=== PATIENT | male | born 1955 | race Caucasian/White ===

== ENCOUNTER 2021-05-06 13:07 | Outpatient (REF) | payer BC, SELFPAY ==
--- NOTE | ~2021-05-06 | XR_ITS ---
EXAMINATION: XR FOOT, LEFT CLINICAL INFORMATION: Pain COMPARISON: None TECHNIQUE: AP, lateral, and oblique views of the left foot. FINDINGS: Limited positioning in part due to medial deviation of metatarsal bones about the metatarsal tarsal articulations. There is no definitive changes of a neuropathic joint and there is no subluxation. Mild spurring. No deformity or any periosteal new bone formation. No erosions. No fracture. XR/XR foot LT min 3V IMPRESSION: Chronic malalignment of the midtarsal joint as above.
== END 2021-05-06 13:08 | disposition home or self-care (01) ==
LOC: HO.HMGCLDS 13:07
PROVIDERS: PCP Family Medicine; Visit Provider Physician Assistant Medical
DX: M79.672 Pain in left foot (principal)
CPT/HCPCS: 73630

== ENCOUNTER → 2022-02-12 11:07 | Outpatient (BNVA) | payer MEDICARE, SELFPAY | PROVIDERS: Visit Provider Psychiatry & Neurology Psychiatry | DX: F32.4 Major depressive disorder, single episode, in partial remission (principal); Z79.899 Other long term (current) drug therapy | CPT/HCPCS: 90833; 99212 ==

== ENCOUNTER 2022-04-12 14:00 | Emergency (ER) | payer MEDICARE, SELFPAY ==
--- NOTE | ~2022-04-12 | CT_ITS ---
EXAMINATION: CT ABDOMEN AND PELVIS WITH CONTRAST CLINICAL INFORMATION: Diffuse abdominal pain COMPARISON: CT abdomen pelvis 01/12/2019 TECHNIQUE: Multidetector volumetric images were obtained from the superior aspect of the liver through the pubic symphysis following administration 100 mL of Omnipaque 350 intravenous contrast. Sagittal and coronal reformatted images were obtained on the technologist's workstation. Oral contrast: No This CT examination was performed using dose optimization techniques as appropriate, variously including the following: *Automated exposure control *Adjustment of mA and/or kV according to patient size (this includes techniques or standardized protocols for targeted exams where dose is matched to indication/reason for exam; i.e. extremities or head) *Use of iterative reconstruction technique DLP: 812 mGy-cm FINDINGS: LUNG BASES: The visualized lung bases are unremarkable. LIVER, GALLBLADDER, AND BILIARY TREE: The liver is enlarged measuring 17.9 cm in greatest cephalocaudad dimension. Normal in size, shape, and attenuation. No focal hepatic lesion or biliary ductal dilatation is present. The gallbladder is unremarkable with no evidence of radiopaque gallstones, gallbladder wall thickening, or obvious pericholecystic inflammatory changes. PANCREAS: Unremarkable. SPLEEN: Unremarkable. ADRENAL GLANDS: Unremarkable. KIDNEYS AND URETERS: The kidneys are normal in size, shape, and attenuation. Bilateral benign Bosniak class I cysts are present. No solid renal masses are seen. 3 small punctate calcifications seen in the left kidney (3:30 and 29 as well as 6:36, 37 and 39). No hydronephrosis, hydroureter, or right-sided or ureteral calculi seen. No perinephric stranding. BLADDER: Unremarkable. GASTROINTESTINAL TRACT: A lap band is in place. The small and large bowel are unremarkable. The appendix is unremarkable. ABDOMINAL WALL: No significant hernia is appreciated. LYMPH NODES: Small peripancreatic lymph nodes seen the largest 1.1 cm no retroperitoneal lymphadenopathy. VASCULAR: Mild calcific plaque in the infrarenal aorta without aneurysm. PELVIC VISCERA: There is mild BPH. OSSEOUS STRUCTURES: Degenerative changes are present throughout the spine. No bony destructive lesions CT/CT abdomen pelvis w IV con IMPRESSION: 1. A cause for the patient's diffuse abdominal pain has not been found. 2. Incidental note made of mild hepatomegaly, benign Bosniak class I renal cysts which need no further imaging or follow-up, small punctate nonobstructing left renal calculi, mild BPH and degenerative changes in the spine. Fleischner guidelines were followed.
[2022-04-12 16:13] VITALS: BP 148/73; PULSE 94; RESP 18; TEMP 36.2; O2SAT 98; BMI 32.5
--- NOTE | 2022-04-12 16:14 | ED.GENADULT ---
HPI - General Adult General Chief complaint: Abdominal Pain <KETTY Cunningham - Last Filed: 04/12/22 16:18> Stated complaint: Abd pain/Diarrhea <KETTY Cunningham - Last Filed: 04/12/22 16:18> Time Seen by Provider: 04/12/22 23:09 <KETTY Cunningham - Last Filed: 04/12/22 16:18> Source: patient <Lluvia Duncan CNP - Last Filed: 04/13/22 01:01> Mode of arrival: ambulatory <Lluvia Duncan CNP - Last Filed: 04/13/22 01:01> Limitations: no limitations <Lluvia Duncan CNP - Last Filed: 04/13/22 01:01> History of Present Illness HPI narrative: Patient is a 67-year-old male presents to the emergency department for evaluation of abdominal pain with nausea and diarrhea. Symptom onset was yesterday morning. He states that he is having diffuse lower abdominal cramping and sharp pains. Has associated nausea without episodes of vomiting. T-max yesterday 100.8. He reports multiple episodes of diarrhea yesterday. Today he has had to liquid stools containing blood. Denies any anticoagulants usage. Denies any past history of diverticulitis, colitis, bowel obstruction. Prior colonoscopies have been normal, due for routine follow-up next month. <Lluvia Duncan CNP - Last Filed: 04/13/22 01:01> Related Data Home medications: Home Medications Medication Instructions Recorded Confirmed finasteride 5 mg tablet 5 mg PO DAILY 05/06/21 02/12/22 gabapentin 300 mg capsule 300 mg PO TID 05/06/21 02/12/22 levothyroxine 75 mcg tablet 75 mcg PO DAILY 05/06/21 losartan 100 mg tablet 100 mg PO DAILY 05/06/21 02/12/22 simvastatin 40 mg tablet 40 mg PO BEDTIME 05/06/21 02/12/22 Previous Rx's Medication Instructions Recorded armodafinil 150 mg tablet 150 mg PO QAM #30 tabs 02/12/22 bupropion HCl 300 mg 24 hr tablet, 300 mg PO QAM 30 days #30 tabs 02/12/22 extended release trazodone 100 mg tablet 300 mg PO BEDTIME PRN sleep #270 03/01/22 tabs pramipexole 0.25 mg tablet 0.25 mg PO BEDTIME 30 days #30 tabs 04/12/22 (Mirapex) <KETTY Cunningham - Last Filed: 04/12/22 16:18> Allergies/adverse reactions: Allergies Allergy/AdvReac Type Severity Reaction Status Date / Time Opium Allergy Intermediate HALLUCINATI Uncoded 04/12/22 16:18 ON opioid Allergy Unknown Hallucinati Uncoded 04/12/22 16:19 ons <KETTY Cunningham - Last Filed: 04/12/22 16:18> Review of Systems Review of Systems: Constitutional : No Weight loss, No Fever, No Chills ENT/Mouth :? No sore throat, No Rhinorrhea Eyes: No Swelling, No Redness Cardiovascular : No Chest Pain, No SOB, No Edema Respiratory : No Cough, No Sputum, No Wheezing Gastrointestinal : Positive Nausea, no Vomiting, positive Diarrhea, positive abdominal pain, No Hematochezia, No Melena Genitourinary : No Dysuria, No Urinary Frequency, No Hematuria, No Urgency? Musculoskeletal : No joint pain, No Myalgias, No Joint Swelling Skin : No Skin Lesions, No rash Neuro : No Weakness, No Numbness, No Dizziness, No Headache Psych : No Anxiety/Panic, No Depression Heme/Lymph: No Bruising, No Lymphadenopathy Endocrine : No Polyuria, No Polydipsia <Lluvia Duncan CNP - Last Filed: 04/13/22 01:01> Yes all other systems are reviewed and are negative <Lluvia Duncan CNP - Last Filed: 04/13/22 01:01> [facility] Past Medical History Attestation statement: The following information was validated with the patient. <Lluvia Duncan CNP - Last Filed: 04/13/22 01:01> Source: old records reviewed <Lluvia Duncan CNP - Last Filed: 04/13/22 01:01> Medical History: Medical History Essential (primary) hypertension Hyperlipemia Major depress, part remis CHASE (obstructive sleep apnea) <KETTY Cunningham - Last Filed: 04/12/22 16:18> Social History Social History: Social History Alcohol intake: current Alcohol intake frequency: 0-2 drinks per day Advance Directives: No Advance Directives Information Provided: Yes <KETTY Cunningham - Last Filed: 04/12/22 16:18> Physical Exam ED Vital Signs: Vital Signs - 24 hr 04/12/22 16:13 04/12/22 21:18 04/12/22 23:34 Temperature 97.1 F 98.8 F 98.6 F Pulse Rate 94 73 80 Respiratory Rate 18 16 18 Blood Pressure 148/73 H 151/78 H 148/76 H Pulse Oximetry 98 98 Oxygen Delivery Method Room Air Room Air Room Air 04/13/22 00:44 Temperature 97.6 F Pulse Rate 77 Respiratory Rate 18 Blood Pressure 145/71 H Pulse Oximetry 97 Oxygen Delivery Method Room Air BMI result Body Mass Index 32.5 <KETTY Cunningham - Last Filed: 04/12/22 16:18> Vital Signs - 24 hr 04/12/22 16:13 04/12/22 21:18 04/12/22 23:34 Temperature 97.1 F 98.8 F 98.6 F Pulse Rate 94 73 80 Respiratory Rate 18 16 18 Blood Pressure 148/73 H 151/78 H 148/76 H Pulse Oximetry 98 98 Oxygen Delivery Method Room Air Room Air Room Air 04/13/22 00:44 Temperature 97.6 F Pulse Rate 77 Respiratory Rate 18 Blood Pressure 145/71 H Pulse Oximetry 97 Oxygen Delivery Method Room Air BMI result Body Mass Index 32.5 <Lluvia Duncan CNP - Last Filed: 04/13/22 01:01> Appearance: Alert.?Oriented to person, place and time. No acute distress.?Normal affect. Eyes: Pupils equal, round and reactive to light.? ENT: Pharynx normal.?? Neck: Normal inspection.? Neck supple.?? CVS: Heart sounds normal. Normal heart rate and rhythm.? Pulses normal.?? Respiratory: No respiratory distress.? Lung sounds clear to auscultation bilaterally?? Abdomen: Soft with diffuse lower abdominal tenderness. Normoactive bowel sounds. Rectal exam performed with russet repairer, lead nuclear medicine technologist. Maroon-colored blood upon examination of stool ? Skin: Skin warm and dry.? Normal skin color.? ?? Extremities: No lower extremity edema.? Neuro: Moves all extremities spontaneously. Sensation intact bilaterally. No focal neuro deficits. Ambulates with normal steady gait. <Lluvia Duncan CNP - Last Filed: 04/13/22 01:01> Course Course Course Narrative: Patient is a 67-year-old male with a past medical history of Hypertension, hyperlipidemia, CHASE, who presents emergency department for evaluation of abdominal pain and bloody diarrhea. At the time of examination he is overall well-appearing. Vital signs overall stable, no tachycardia, fever, tachypnea or hypoxia. Is mildly hypertensive. Diffuse lower abdominal tenderness upon examination, positive hematochezia. At the time of evaluation 23:15 patient has had labs obtained from [facility] chief been reviewed, leukocytosis 16.6 with left shift, CMP overall unremarkable. Awaiting CT. Urinalysis unremarkable. Occult stool is positive. <Lluvia Duncan CNP - Last Filed: 04/13/22 01:01> Reevaluation(s) Reevaluation #1: 67 year old male presents w/ diffuse crampy abdominal pain with intermittent sharp pains, nausea, diarrhea ( 2 small ones today, completely liquid containing blood) X2 days. Not on blood thinners. No abd trauma. Yesterday had a fever of 100.8 F. Last colonoscopy 5 years ago which was normal scheduled to get one next month. No personal or family hx of colorectal cancer. Denies, chills, anorexia, vomiting, chest pain, shortness of breath, weakness. Reports antibiotic use 1 month ago. PE: diffusely tender abd w/ normal bowel sounds. Plan: labs CT scan. <KETTY Cunningham - Last Filed: 04/12/22 16:18> Time: 16:16 <KETTY Cunningham - Last Filed: 04/12/22 16:18> Reevaluation #2: Patient noted to be ambulatory with steady gait. CT reveals an unremarkable small and large bowel, no acute abdominal pathology. Reviewed this case with ED attending Dr. Beaulieu, agrees with following plan of care; discharge home, supportive measure, rest, hydration, slow progression of bland diet, reviewed worrisome signs and symptoms to return back to the ED for, all questions were answered. Tolerating crackers and gingerale in ED without vomiting. <Lluviapaul Duncan CNP - Last Filed: 04/13/22 01:01> Time: 00:43 <Lluvia Vallesse Duncan CNP - Last Filed: 04/13/22 01:01> Medications Administered Generic Name Dose Route Start Last Admin Trade Name Freq PRN Reason Stop Dose Admin Levofloxacin 750 mg in 150 mls @ 100 mls/hr 04/12/22 23:37 04/13/22 00:35 Levaquin IV 04/13/22 01:06 100 mls/hr ONCE ONE Administration Discontinued Medications Generic Name Dose Route Start Last Admin Trade Name Freq PRN Reason Stop Dose Admin Acetaminophen 650 mg 04/12/22 18:25 04/12/22 18:38 Acetaminophen 325 Mg Tablet PO 04/12/22 18:26 650 mg ONCE ONE Administration Sodium Chloride 1,000 mls @ 999 mls/hr 04/12/22 23:45 04/13/22 00:35 Ns IV 04/13/22 00:45 999 mls/hr .Q1H1M CRISTA Administration Iohexol 100 ml 04/13/22 00:11 04/13/22 00:11 Iohexol 350 Mg/Ml 100 Ml Infus..Btl IV 04/13/22 00:12 100 ml ONCE ONE Administration <KETTY Cunningham - Last Filed: 04/12/22 16:18> Medications Administered Generic Name Dose Route Start Last Admin Trade Name Freq PRN Reason Stop Dose Admin Levofloxacin 750 mg in 150 mls @ 100 mls/hr 04/12/22 23:37 04/13/22 00:35 Levaquin IV 04/13/22 01:06 100 mls/hr ONCE ONE Administration Discontinued Medications Generic Name Dose Route Start Last Admin Trade Name Freq PRN Reason Stop Dose Admin Acetaminophen 650 mg 04/12/22 18:25 04/12/22 18:38 Acetaminophen 325 Mg Tablet PO 04/12/22 18:26 650 mg ONCE ONE Administration Sodium Chloride 1,000 mls @ 999 mls/hr 04/12/22 23:45 04/13/22 00:35 Ns IV 04/13/22 00:45 999 mls/hr .Q1H1M CRISTA Administration Iohexol 100 ml 04/13/22 00:11 04/13/22 00:11 Iohexol 350 Mg/Ml 100 Ml Infus..Btl IV 04/13/22 00:12 100 ml ONCE ONE Administration <Lluvia Duncan CNP - Last Filed: 04/13/22 01:01> Medical Decision Making Lab Data Result diagrams: : 04/12/22 21:24 04/12/22 21:24 <KETTY Cunningham - Last Filed: 04/12/22 16:18> Labs: Lab Results 04/12/22 04/12/22 04/12/22 Range/Units 21:24 21:24 21:24 WBC 16.6 H (4.8-10.8) X10*3/uL RBC 5.05 (4.60-5.80) X10*6/uL Hgb 14.8 (14.0-18.0) g/dl Hct 44.5 (42.0-52.0) % MCV 88.1 (80.0-98.0) fL MCH 29.3 (27.0-33.0) pg MCHC 33.3 (31.0-36.0) g/dl RDW 13.3 (11.0-16.0) % Plt Count 284 (160-400) X10*3/uL MPV 8.6 L (9.4-12.4) fL Immature Gran % (Auto) 0.3 (0.0-0.4) % Neut % (Auto) 78.2 H (45-73) % Lymph % (Auto) 10.7 L (20-40) % [place] % (Auto) 9.6 (2-11) % Eos % (Auto) 1.0 (0-4) % Baso % (Auto) 0.2 (0-2) % Lymph # (Auto) 1.8 (1.2-4.9) X10*3/uL [place] # (Auto) 1.6 H (0.1-1.2) X10*3/uL Eos # (Auto) 0.2 (0.0-0.4) X10*3/uL Baso # (Auto) 0.0 (0.0-0.2) X10*3/uL Abs Immat Gran (auto) 0.05 H (0.00-0.03) X10*3/uL Absolute Neuts (auto) 13.0 H (2.0-8.3) x10*3/uL Absolute Nucleated RBC 0.000 (0.0-0.012) X10*3/uL Nucleated RBC % (auto) 0.0 (0.0-0.2) /100WBC Smear Tech's Comments VERIFIED Sodium 136 (135-145) mmol/L Potassium 4.6 (3.3-5.1) mmol/L Chloride 101 (96-108) mmol/L Carbon Dioxide 25 (22-29) mmol/L Anion Gap 15 (12-20) BUN 17 H (9-16) mg/dL Creatinine 0.94 (0.5-1.4) mg/dL Estim Creat Clear Calc 98.5 Estimated GFR > 60 Random Glucose 122 H (60-115) mg/dL Lactic Acid (0.5-2.0) mmol/L Calcium 9.4 (8.4-10.2) mg/dL Magnesium 2.2 (1.6-2.6) mg/dL Total Bilirubin 0.8 (0.0-1.0) mg/dL AST 19 (5-37) U/L ALT 21 (0-40) U/L Alkaline Phosphatase 75 (39-117) U/L Total Protein 7.5 (6.5-8.0) g/dL Albumin 4.4 (3.5-5.0) g/dL Lipase 23 (8-78) U/L Urine Color Urine Appearance Urine pH (5.0-9.0) Ur Specific Stark (1.005-1.025) Urine Protein (Neg-Trace) mg/dL Urine Glucose (UA) (Negative) mg/dL Urine Ketones (Negative) mg/dL Urine Blood (Negative) Urine Nitrite (Negative) Ur Leukocyte Esterase (Negative) Stool Occult Blood (NEGATIVE) COVID-19 (NIELS) Negative (Negative) COVID-19 Clin Com See Note 04/12/22 04/12/22 04/13/22 Range/Units 21:34 23:29 00:29 WBC (4.8-10.8) X10*3/uL RBC (4.60-5.80) X10*6/uL Hgb (14.0-18.0) g/dl Hct (42.0-52.0) % MCV (80.0-98.0) fL MCH (27.0-33.0) pg MCHC (31.0-36.0) g/dl RDW (11.0-16.0) % Plt Count (160-400) X10*3/uL MPV (9.4-12.4) fL Immature Gran % (Auto) (0.0-0.4) % Neut % (Auto) (45-73) % Lymph % (Auto) (20-40) % [place] % (Auto) (2-11) % Eos % (Auto) (0-4) % Baso % (Auto) (0-2) % Lymph # (Auto) (1.2-4.9) X10*3/uL [place] # (Auto) (0.1-1.2) X10*3/uL Eos # (Auto) (0.0-0.4) X10*3/uL Baso # (Auto) (0.0-0.2) X10*3/uL Abs Immat Gran (auto) (0.00-0.03) X10*3/uL Absolute Neuts (auto) (2.0-8.3) x10*3/uL Absolute Nucleated RBC (0.0-0.012) X10*3/uL Nucleated RBC % (auto) (0.0-0.2) /100WBC Smear Tech's Comments Sodium (135-145) mmol/L Potassium (3.3-5.1) mmol/L Chloride (96-108) mmol/L Carbon Dioxide (22-29) mmol/L Anion Gap (12-20) BUN (9-16) mg/dL Creatinine (0.5-1.4) mg/dL Estim Creat Clear Calc Estimated GFR Random Glucose (60-115) mg/dL Lactic Acid 0.4 L (0.5-2.0) mmol/L Calcium (8.4-10.2) mg/dL Magnesium (1.6-2.6) mg/dL Total Bilirubin (0.0-1.0) mg/dL AST (5-37) U/L ALT (0-40) U/L Alkaline Phosphatase (39-117) U/L Total Protein (6.5-8.0) g/dL Albumin (3.5-5.0) g/dL Lipase (8-78) U/L Urine Color Dark Yellow Urine Appearance Clear Urine pH 5.5 (5.0-9.0) Ur Specific Stark 1.025 (1.005-1.025) Urine Protein Trace (Neg-Trace) mg/dL Urine Glucose (UA) Negative (Negative) mg/dL Urine Ketones Negative (Negative) mg/dL Urine Blood Negative (Negative) Urine Nitrite Negative (Negative) Ur Leukocyte Esterase Negative (Negative) Stool Occult Blood POSITIVE (NEGATIVE) COVID-19 (NIELS) (Negative) COVID-19 Clin Com <KETTY Cunningham - Last Filed: 04/12/22 16:18> Lab Results 04/12/22 04/12/22 04/12/22 Range/Units 21:24 21:24 21:24 WBC 16.6 H (4.8-10.8) X10*3/uL RBC 5.05 (4.60-5.80) X10*6/uL Hgb 14.8 (14.0-18.0) g/dl Hct 44.5 (42.0-52.0) % MCV 88.1 (80.0-98.0) fL MCH 29.3 (27.0-33.0) pg MCHC 33.3 (31.0-36.0) g/dl RDW 13.3 (11.0-16.0) % Plt Count 284 (160-400) X10*3/uL MPV 8.6 L (9.4-12.4) fL Immature Gran % (Auto) 0.3 (0.0-0.4) % Neut % (Auto) 78.2 H (45-73) % Lymph % (Auto) 10.7 L (20-40) % [place] % (Auto) 9.6 (2-11) % Eos % (Auto) 1.0 (0-4) % Baso % (Auto) 0.2 (0-2) % Lymph # (Auto) 1.8 (1.2-4.9) X10*3/uL [place] # (Auto) 1.6 H (0.1-1.2) X10*3/uL Eos # (Auto) 0.2 (0.0-0.4) X10*3/uL Baso # (Auto) 0.0 (0.0-0.2) X10*3/uL Abs Immat Gran (auto) 0.05 H (0.00-0.03) X10*3/uL Absolute Neuts (auto) 13.0 H (2.0-8.3) x10*3/uL Absolute Nucleated RBC 0.000 (0.0-0.012) X10*3/uL Nucleated RBC % (auto) 0.0 (0.0-0.2) /100WBC Smear Tech's Comments VERIFIED Sodium 136 (135-145) mmol/L Potassium 4.6 (3.3-5.1) mmol/L Chloride 101 (96-108) mmol/L Carbon Dioxide 25 (22-29) mmol/L Anion Gap 15 (12-20) BUN 17 H (9-16) mg/dL Creatinine 0.94 (0.5-1.4) mg/dL Estim Creat Clear Calc 98.5 Estimated GFR > 60 Random Glucose 122 H (60-115) mg/dL Lactic Acid (0.5-2.0) mmol/L Calcium 9.4 (8.4-10.2) mg/dL Magnesium 2.2 (1.6-2.6) mg/dL Total Bilirubin 0.8 (0.0-1.0) mg/dL AST 19 (5-37) U/L ALT 21 (0-40) U/L Alkaline Phosphatase 75 (39-117) U/L Total Protein 7.5 (6.5-8.0) g/dL Albumin 4.4 (3.5-5.0) g/dL Lipase 23 (8-78) U/L Urine Color Urine Appearance Urine pH (5.0-9.0) Ur Specific Stark (1.005-1.025) Urine Protein (Neg-Trace) mg/dL Urine Glucose (UA) (Negative) mg/dL Urine Ketones (Negative) mg/dL Urine Blood (Negative) Urine Nitrite (Negative) Ur Leukocyte Esterase (Negative) Stool Occult Blood (NEGATIVE) COVID-19 (NIELS) Negative (Negative) COVID-19 Clin Com See Note 04/12/22 04/12/22 04/13/22 Range/Units 21:34 23:29 00:29 WBC (4.8-10.8) X10*3/uL RBC (4.60-5.80) X10*6/uL Hgb (14.0-18.0) g/dl Hct (42.0-52.0) % MCV (80.0-98.0) fL MCH (27.0-33.0) pg MCHC (31.0-36.0) g/dl RDW (11.0-16.0) % Plt Count (160-400) X10*3/uL MPV (9.4-12.4) fL Immature Gran % (Auto) (0.0-0.4) % Neut % (Auto) (45-73) % Lymph % (Auto) (20-40) % [place] % (Auto) (2-11) % Eos % (Auto) (0-4) % Baso % (Auto) (0-2) % Lymph # (Auto) (1.2-4.9) X10*3/uL [place] # (Auto) (0.1-1.2) X10*3/uL Eos # (Auto) (0.0-0.4) X10*3/uL Baso # (Auto) (0.0-0.2) X10*3/uL Abs Immat Gran (auto) (0.00-0.03) X10*3/uL Absolute Neuts (auto) (2.0-8.3) x10*3/uL Absolute Nucleated RBC (0.0-0.012) X10*3/uL Nucleated RBC % (auto) (0.0-0.2) /100WBC Smear Tech's Comments Sodium (135-145) mmol/L Potassium (3.3-5.1) mmol/L Chloride (96-108) mmol/L Carbon Dioxide (22-29) mmol/L Anion Gap (12-20) BUN (9-16) mg/dL Creatinine (0.5-1.4) mg/dL Estim Creat Clear Calc Estimated GFR Random Glucose (60-115) mg/dL Lactic Acid 0.4 L (0.5-2.0) mmol/L Calcium (8.4-10.2) mg/dL Magnesium (1.6-2.6) mg/dL Total Bilirubin (0.0-1.0) mg/dL AST (5-37) U/L ALT (0-40) U/L Alkaline Phosphatase (39-117) U/L Total Protein (6.5-8.0) g/dL Albumin (3.5-5.0) g/dL Lipase (8-78) U/L Urine Color Dark Yellow Urine Appearance Clear Urine pH 5.5 (5.0-9.0) Ur Specific Stark 1.025 (1.005-1.025) Urine Protein Trace (Neg-Trace) mg/dL Urine Glucose (UA) Negative (Negative) mg/dL Urine Ketones Negative (Negative) mg/dL Urine Blood Negative (Negative) Urine Nitrite Negative (Negative) Ur Leukocyte Esterase Negative (Negative) Stool Occult Blood POSITIVE (NEGATIVE) COVID-19 (NIELS) (Negative) COVID-19 Clin Com <Lluvia Duncan CNP - Last Filed: 04/13/22 01:01> Imaging Data CT scan - abdomen: Radiologist's impression: CT/CT abdomen pelvis w IV con IMPRESSION: 1.? A cause for the patient's diffuse abdominal pain has not been found. 2.? Incidental note made of mild hepatomegaly, benign Bosniak class I renal cysts which need no further imaging or follow-up, small punctate nonobstructing left renal calculi, mild BPH and degenerative changes in the spine. <Lluvia Duncan CNP - Last Filed: 04/13/22 01:01> Critical Care Time Critical Care Time Critical Care Time: No <KETTY Cunningham - Last Filed: 04/12/22 16:18> Discharge Plan Discharge Clinical Impression: Gastroenteritis <KETTY Cunningham Last Filed: 04/12/22 16:18> Patient Disposition: Home, Self-Care <KETTY Cunningham Last Filed: 04/12/22 16:18> Instructions: Acute Diarrhea (ED), Enteritis (ED) <KETTY Cunningham Last Filed: 04/12/22 16:18> Additional Instructions: Please be sure to rest over the next few days, drink plenty of fluid to stay well hydrated. Slow progression of bland diet as discussed; Introduce a bland diet including crackers, bananas, rice, soup, toast, and boiled vegetables. This may progress to plain baked or boiled chicken or turkey. Avoid dairy products or foods high in fat or grease. Return to the emergency department with new or worsening symptoms or concerns Follow-up with primary care provider within the next 3 days. <KETTY Cunningham - Last Filed: 04/12/22 16:18> Prescriptions: No Action trazodone 100 mg tablet 300 mg PO BEDTIME PRN (Reason: sleep) Qty: 270 0RF pramipexole [Mirapex] 0.25 mg tablet 0.25 mg PO BEDTIME 30 Days Qty: 30 1RF gabapentin 300 mg capsule 300 mg PO TID levothyroxine 75 mcg tablet 75 mcg PO DAILY simvastatin 40 mg tablet 40 mg PO BEDTIME losartan 100 mg tablet 100 mg PO DAILY finasteride 5 mg tablet 5 mg PO DAILY armodafinil 150 mg tablet 150 mg PO QAM Qty: 30 2RF bupropion HCl 300 mg tablet extended release 24 hr 300 mg PO QAM 30 Days Qty: 30 2RF <KETTY Cunningham - Last Filed: 04/12/22 16:18> Referrals: Richard Ambriz MD [Primary Care Provider] - <KETTY Cunningham - Last Filed: 04/12/22 16:18>
[2022-04-12] MEDS: Acetaminophen 325 MG TABLET 650 MG PO (18:38)
[2022-04-12 21:18] VITALS: BP 151/78; PULSE 73; RESP 16; TEMP 37.1; O2SAT 98
[2022-04-12 21:31] LABS: Basophils Percent Auto 0.2 % (0-2); Eosinophils Absolute Auto 0.2 X10*3/uL (0.0-0.4); Hematocrit 44.5 % (42.0-52.0); Hemoglobin 14.8 g/dl (14.0-18.0); Imm Gran Abs Auto 0.05 X10*3/uL (0.00-0.03); Imm Gran Pct Auto 0.3 % (0.0-0.4); Lymphocytes Absolute Auto 1.8 X10*3/uL (1.2-4.9); Lymphocytes Percent Auto 10.7 % (20-40); MANUAL DIFF FLAG SCAN; Mean Corpuscular HGB Conc 33.3 g/dl (31.0-36.0); Mean Corpuscular Hemoglobin 29.3 pg (27.0-33.0); Mean Corpuscular Volume 88.1 fL (80.0-98.0); Mean Platelet Volume 8.6 fL (9.4-12.4); Monocytes Absolute Auto 1.6 X10*3/uL (0.1-1.2); Monocytes Percent Auto 9.6 % (2-11); Neutrophils Percent Auto 78.2 % (45-73); Platelet Count 284 X10*3/uL (160-400); Red Blood Count 5.05 X10*6/uL (4.60-5.80); Red Cell Distribution Width 13.3 % (11.0-16.0); SCAN SMEAR FLAG 1; White Blood Count 16.6 X10*3/uL (4.8-10.8)
[2022-04-12 21:49] LABS: Appearance Urine Clear; Color Urine Dark Yellow; Glucose Urine UA Negative (Negative); Leukocyte Esterase Urine Negative (Negative); Nitrite Urine Negative (Negative); PH 5.5 (5.0-9.0); Specific Gravity - Urine 1.025 (1.005-1.025); Urine Blood Negative (Negative); Urine Ketones Negative (Negative); Urine Protein Trace mg/dL (Neg-Trace)
[2022-04-12 21:58] LABS: Alanine Aminotransferase 21 U/L (0-40); Albumin Level 4.4 g/dL (3.5-5.0); Alkaline Phosphatase 75 U/L (39-117); Anion Gap 15 (12-20); Aspartate Amino Transferase 19 U/L (5-37); Bilirubin Total 0.8 mg/dL (0.0-1.0); Blood Urea Nitrogen 17 mg/dL (9-16); Calcium 9.4 mg/dL (8.4-10.2); Carbon Dioxide 25 mmol/L (22-29); Chloride 101 mmol/L (96-108); Creatinine Clr Calc Pharmacy 98.5; Estimated Glomerular Filt Rate > 60; Glucose Random 122 mg/dL (60-115); Lipase 23 U/L (8-78); Magnesium 2.2 mg/dL (1.6-2.6); Potassium 4.6 mmol/L (3.3-5.1); Sodium 136 mmol/L (135-145); Total Protein 7.5 g/dL (6.5-8.0)
[2022-04-12 22:14] LABS: SLIDE REVIEW VERIFIED
[2022-04-12 22:17] LABS: COVID-19 Test Negative (Negative)
[2022-04-12 23:32] LABS: OBS1 POSITIVE (NEGATIVE)
[2022-04-12 23:33] LABS: OBS Int Ctl Valid YES
[2022-04-12 23:34] VITALS: BP 148/76; PULSE 80; RESP 18; TEMP 37
[2022-04-13] MEDS: iohexoL 350 MG/ML 100 ML INFUS..BTL IV (00:11)
[2022-04-13] MEDS: 0.9 % Sodium Chloride 1,000 ML 999 ML IV (00:35)
[2022-04-13] MEDS: levoFLOXacin/D5W 750 MG/150 ML PIGGYBACK 100 MG IV (00:35)
--- NOTE | 2022-04-13 00:43 | PC.NURSE ---
Pt. resting in bed, awaiting results from CT. Blood cultures and lactic acid drawn and IV ABX running w/fluids per JUL. Pt. reports some decrease in pain since the tylenol.
[2022-04-13 00:44] VITALS: BP 145/71; PULSE 77; RESP 18; TEMP 36.4; O2SAT 97
[2022-04-13 00:52] LABS: Lactic Acid 0.4 mmol/L (0.5-2.0)
== END 2022-04-13 01:40 | disposition home or self-care (01) ==
PROVIDERS: Nurse Practitioner Family; Physician Assistant; Emergency Provider Internal Medicine; PCP Family Medicine
DX: K52.9 Noninfective gastroenteritis and colitis, unspecified (principal); R10.9 Unspecified abdominal pain; R50.9 Fever, unspecified; Z20.822 Contact with and (suspected) exposure to COVID-19; Z79.02 Long term (current) use of antithrombotics/antiplatelets; Z79.899 Other long term (current) drug therapy
CPT/HCPCS: 36415; 74177; 80053; 81003; 82272; 83605; 83690; 83735; 85025; 87040; 87635; 96361; 96374; 99284; J1956; Q9967

== ENCOUNTER → 2022-04-23 11:07 | Outpatient (BNVA) | payer MEDICARE, SELFPAY | PROVIDERS: PCP Family Medicine; Visit Provider Psychiatry & Neurology Psychiatry | DX: F32.4 Major depressive disorder, single episode, in partial remission (principal); F98.8 Other specified behavioral and emotional disorders with onset usually occurring in childhood and adolescence; I10 Essential (primary) hypertension; E78.5 Hyperlipidemia, unspecified; G47.33 Obstructive sleep apnea (adult) (pediatric) | CPT/HCPCS: 99212 ==

== ENCOUNTER → 2022-06-23 11:37 | Outpatient (BNVA) | payer MEDICARE, SELFPAY | PROVIDERS: PCP Family Medicine; Visit Provider Psychiatry & Neurology Psychiatry | DX: F32.4 Major depressive disorder, single episode, in partial remission (principal); F98.8 Other specified behavioral and emotional disorders with onset usually occurring in childhood and adolescence; F52.9 Unspecified sexual dysfunction not due to a substance or known physiological condition; I10 Essential (primary) hypertension; G47.33 Obstructive sleep apnea (adult) (pediatric); Z63.0 Problems in relationship with spouse or partner | CPT/HCPCS: 90833; 99212 ==

== ENCOUNTER → 2022-10-25 14:34 | Outpatient (BNVA) | payer MEDICARE, SELFPAY | PROVIDERS: PCP Family Medicine; Visit Provider Psychiatry & Neurology Psychiatry | DX: F98.8 Other specified behavioral and emotional disorders with onset usually occurring in childhood and adolescence (principal); F32.4 Major depressive disorder, single episode, in partial remission; G47.33 Obstructive sleep apnea (adult) (pediatric) | CPT/HCPCS: 90833; 99212 ==

== ENCOUNTER 2023-04-04 14:48 | Outpatient (AMB) | payer MEDICARE, SELFPAY ==
--- NOTE | 2023-04-04 14:21 | MHC.OFFVISPS ---
Intake Intake Visit Reasons: depression Allergies Opium Allergy (Intermediate, Uncoded 04/12/22 16:18) HALLUCINATION opioid Allergy (Unknown, Uncoded 04/12/22 16:19) Hallucinations Medication List - Last Reconciled 04/04/23 by Parvez Lucero MD armodafinil 150 mg PO QAM bupropion HCl 300 mg PO QAM 30 days finasteride 5 mg PO DAILY gabapentin 300 mg PO BEDTIME levothyroxine 75 mcg PO DAILY losartan 100 mg PO DAILY pramipexole (Mirapex) 0.25 mg PO BEDTIME 30 days rivastigmine tartrate 1.5 mg PO BID simvastatin 40 mg PO BEDTIME trazodone 200 mg (2 x 100 mg) PO BEDTIME PRN HPI- Psychiatric Chief Complaint: depression HPI Narrative: Pts father 2 months ago feels pressured in having to move has been clearing out f house still neg connected with his ex <del>who</del> <del>still</del> <del>gets</del> <del>critisized</del> <del>by</del> <del></del> has felt inc irritable PHQ-9 14 patient does feel somewhat aimless may have to stay with his brother for a period of time. Patient still being asked by his ex- final most daily basis to come over and do different types of chores and she will frequently still read him intermittently Past Psychiatric History: hx depression adhd chronic marital problems chronic problems attention organization Mental Status Exam Mental Status Exam Narrative: Mental Status Exam Narrative: Appearance: Casually dressed Behavior: Cooperative appropriate psychomotor: Within normal limits Speech: Normal volume and prosody Thought proccess logical and goal-directed Thought content: Future oriented no self-harming thoughts issues related to divorce Mood: Anxious dysphoric Affect: Appropriate to mood constricted affect SI:denies HI:denies VH/AH:none Delusions: None Insight/judgment: Good insight and judgment feels ok about Memory/cog: Intact Assessment and Plan Assessment & Plan (1) ADD (attention deficit disorder) without hyperactivity: Status: Acute Code(s): F98.8 - Other specified behavioral and emotional disorders with onset usually occurring in childhood and adolescence (2) Major depress, part remis: Status: Acute Code(s): F32.4 - Major depressive disorder, single episode, in partial remission (3) Essential (primary) hypertension: Status: Acute Code(s): I10 - Essential (primary) hypertension Plan Pt has been feeling overwhelmed Wellbutrin 300 mg are modafinil strongly urged regular counseling patient seems somewhat adrift unclear how to move forward Medications: New bupropion HCl 150 mg PO QAM 30 tabs 2RF Discontinued bupropion HCl Discontinued Reason: Doctor's Order 300 mg PO QAM 30 days 30 tabs 2RF F32.4 - Major depressive disorder, single episode, in partial remission Counseling and coordination of Care Pt. Self Management counseling: Breathing, Behavior activation, Greif counseling and Problem solving Details: I spent [] minutes reviewing the record, seeing the patient and documenting in the medical record. Counseling provided to the patient/caregiver as outlined below. Addressed patient/caregiver concerns regarding current medication regime including effective adherence. Addressed patient/caregiver concerns regarding diagnosis and prognosis including accuracy of diagnosis, prognosis over time, impact of diagnosis. Addressed patient/caregiver concerns regarding impact of recent stressors. 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 They have close family in the area currently living now with his dad Substance History: none Trauma History: none Coding Level of Care Code Est Pt Level 3 (82098) Therapy 30m w/E&M (54536) Diagnoses ADD (attention deficit disorder) without hyperactivity F98.8 Major depress, part remis F32.4 Essential (primary) hypertension I10
== END 2023-04-04 14:49 | disposition home or self-care (01) ==
LOC: HO.HOP 14:48
PROVIDERS: PCP Family Medicine; Visit Provider Psychiatry & Neurology Psychiatry
DX: F98.8 Other specified behavioral and emotional disorders with onset usually occurring in childhood and adolescence (principal); F32.4 Major depressive disorder, single episode, in partial remission; I10 Essential (primary) hypertension
CPT/HCPCS: 90833; 99213

== ENCOUNTER → 2023-04-04 14:48 | Outpatient (BNVA) | payer MEDICARE, SELFPAY | PROVIDERS: PCP Family Medicine; Visit Provider Psychiatry & Neurology Psychiatry | DX: F32.4 Major depressive disorder, single episode, in partial remission (principal); F98.8 Other specified behavioral and emotional disorders with onset usually occurring in childhood and adolescence; I10 Essential (primary) hypertension | CPT/HCPCS: 90833; 99212 ==

== ENCOUNTER → 2023-07-07 11:45 | Outpatient (BNVA) | payer MEDICARE, SELFPAY | PROVIDERS: PCP Family Medicine; Visit Provider Psychiatry & Neurology Psychiatry | DX: F98.8 Other specified behavioral and emotional disorders with onset usually occurring in childhood and adolescence (principal); F32.4 Major depressive disorder, single episode, in partial remission; G47.33 Obstructive sleep apnea (adult) (pediatric) | CPT/HCPCS: 99212 ==

== ENCOUNTER 2023-07-07 11:52 | Outpatient (AMB) | payer MEDICARE, SELFPAY ==
--- NOTE | 2023-07-07 11:46 | MHC.OFFVISPS ---
Intake Intake Visit Reasons: depression Allergies Opium Allergy (Intermediate, Uncoded 04/12/22 16:18) HALLUCINATION opioid Allergy (Unknown, Uncoded 04/12/22 16:19) Hallucinations HPI- Psychiatric Chief Complaint: depression HPI Narrative: Patient seen in psychiatric follow-up. The patient has just moved into his own apartment moved out of his brother's house recently. Although he and his are he still feels tied she often asks him to do errands take her to different appointments take care of the dogs she does talk about new people that she is dating and still continues to complain of old Yvan's and sore spots. Patient does feel somewhat trapped in the situation his mood is somewhat flat some difficulty staying asleep some fatigue in morning Past Psychiatric History: hx depression adhd chronic marital problems chronic problems attention organization Mental Status Exam Mental Status Exam Narrative: Mental Status Exam Narrative: Appearance: Casually dressed Behavior: Cooperative appropriate psychomotor: Within normal limits Speech: Normal volume and prosody Thought proccess logical and goal-directed Thought content: Future oriented no self-harming thoughts issues related to divorce Mood: Anxious dysphoric Affect: Appropriate to mood constricted affect SI:denies HI:denies VH/AH:none Delusions: None Insight/judgment: Patient does feel somewhat trapped Memory/cog: No gross difficulty during visit Assessment and Plan Assessment & Plan (1) ADD (attention deficit disorder) without hyperactivity: Status: Acute Code(s): F98.8 - Other specified behavioral and emotional disorders with onset usually occurring in childhood and adolescence (2) Major depress, part remis: Status: Acute Code(s): F32.4 - Major depressive disorder, single episode, in partial remission (3) CHASE (obstructive sleep apnea): Status: Acute Code(s): G47.33 - Obstructive sleep apnea (adult) (pediatric) Plan Given patient's anxiety insomnia rumination discussed the addition of low-dose mirtazapine at bedtime not take with trazodone urged counseling to help deal with multiple transitions including of his father but yet still tied in a negative way Medications: New mirtazapine do not take with trazadone 7.5 mg PO BEDTIME PRN 30 tabs 2RF insomnia Refilled bupropion HCl 150 mg PO QAM 30 tabs 2RF Counseling and coordination of Care Pt. Self Management counseling: Sleep hygiene, Behavior activation and Greif counseling Medication management counseling: Effectiveness, Side effects and Dosing range Diagnosis and Prognosis Counseling: Impact of diagnosis on life functions and Adequacy of current interventions Details: I spent [38] minutes reviewing the record, seeing the patient and documenting in the medical record. Counseling provided to the patient/caregiver as outlined below. Addressed patient/caregiver concerns regarding current medication regime including effective adherence. Addressed patient/caregiver concerns regarding diagnosis and prognosis including accuracy of diagnosis, prognosis over time, impact of diagnosis. Addressed patient/caregiver concerns regarding impact of recent stressors. 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 They have close family in the area currently living now with his dad Substance History: none Trauma History: none Coding Level of Care Code Est Pt Level 3 (60069) Therapy 30m w/E&M (60404) Diagnoses ADD (attention deficit disorder) without hyperactivity F98.8 Major depress, part remis F32.4 CHASE (obstructive sleep apnea) G47.33
== END 2023-07-07 13:54 | disposition home or self-care (01) ==
PROVIDERS: PCP Family Medicine; Visit Provider Psychiatry & Neurology Psychiatry
DX: F98.8 Other specified behavioral and emotional disorders with onset usually occurring in childhood and adolescence (principal); F32.4 Major depressive disorder, single episode, in partial remission; G47.33 Obstructive sleep apnea (adult) (pediatric)
CPT/HCPCS: 90833; 99213

== ENCOUNTER 2023-09-08 11:01 | Outpatient (AMB) | payer MEDICARE, SELFPAY ==
--- NOTE | 2023-09-08 11:40 | A.OFFPSYCH_ITS ---
Intake Intake Visit Reasons: depression Allergies Opium Allergy (Intermediate, Uncoded 04/12/22 16:18) HALLUCINATION opioid Allergy (Unknown, Uncoded 04/12/22 16:19) Hallucinations Medication List - Last Reconciled 09/08/23 by Parvez Lucero MD armodafinil 150 mg PO QAM bupropion HCl XL 150 mg PO QAM finasteride 5 mg PO DAILY gabapentin 300 mg PO BEDTIME levothyroxine 75 mcg PO DAILY losartan 100 mg PO DAILY pramipexole 0.25 mg PO BEDTIME 30 days rivastigmine tartrate 1.5 mg PO BID simvastatin 40 mg PO BEDTIME trazodone 300 mg (3 x 100 mg) PO BEDTIME PRN HPI- Psychiatric Chief Complaint: depression HPI Narrative: Patient seen psychiatric follow-up. Has some degree of chronic anxiety dysphoria but much of this relates to an ongoing conflicted enmeshed relationship with his ex that he feels obligated to. He is seeing someone in psychotherapy has been trying to manage this issue. Are modafinil appears to be helpful for energy and attention continues on Wellbutrin which does appear to be helpful no worsening cognitive issues restless leg on Sinemet at bedtime Past Psychiatric History: hx depression adhd chronic marital problems chronic problems attention organization Mental Status Exam Mental Status Exam Narrative: Mental Status Exam Narrative: Appearance: Casually dressed Behavior: Cooperative appropriate psychomotor: Within normal limits Speech: Normal volume and prosody Thought proccess logical and goal-directed Thought content: Future oriented no self-harming thoughts issues related emeshment with ex Mood: Anxious mild dysphoria Affect: Appropriate to mood constricted affect SI:denies HI:denies VH/AH:none Delusions: None Insight/judgment: Patient does feel somewhat trapped with ex Memory/cog: No gross difficulty during visit Assessment and Plan Assessment & Plan (1) Major depress, part remis: Status: Acute Code(s): F32.4 - Major depressive disorder, single episode, in partial remission (2) ADD (attention deficit disorder) without hyperactivity: Status: Acute Code(s): F98.8 - Other specified behavioral and emotional disorders with onset usually occurring in childhood and adolescence (3) CHASE (obstructive sleep apnea): Status: Acute Code(s): G47.33 - Obstructive sleep apnea (adult) (pediatric) Plan start mirtazapine 7.5 hs for anxiety dysphoria risks benefits alt reviewed Medications: Discontinued mirtazapine do not take with trazadone Discontinued Reason: None 7.5 mg PO BEDTIME PRN 30 tabs 2RF insomnia Counseling and coordination of Care Details-Self Mgmt counseling: Urge patient to set structural boundaries and limits with his ex- Diagnosis and Prognosis Counseling: Impact of diagnosis on life functions and Adequacy of current interventions Details: I spent [38] minutes reviewing the record, seeing the patient and documenting in the medical record. Counseling provided to the patient/caregiver as outlined below. Addressed patient/caregiver concerns regarding current medication regime including effective adherence. Addressed patient/caregiver concerns regarding diagnosis and prognosis including accuracy of diagnosis, prognosis over time, impact of diagnosis. Addressed patient/caregiver concerns regarding impact of recent stressors. 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 They have close family in the area currently living now with his dad Substance History: none Trauma History: none Coding Level of Care Code Est Pt Level 3 (16888) Therapy 30m w/E&M (63246) Diagnoses Major depress, part remis F32.4 ADD (attention deficit disorder) without hyperactivity F98.8 CHASE (obstructive sleep apnea) G47.33
== END 2023-09-08 12:06 | disposition home or self-care (01) ==
LOC: HO.HOP 11:01
PROVIDERS: PCP Family Medicine; Visit Provider Psychiatry & Neurology Psychiatry
DX: F32.4 Major depressive disorder, single episode, in partial remission (principal); F98.8 Other specified behavioral and emotional disorders with onset usually occurring in childhood and adolescence; G47.33 Obstructive sleep apnea (adult) (pediatric)
CPT/HCPCS: 90833; 99213

== ENCOUNTER → 2023-09-08 11:01 | Outpatient (BNVA) | payer MEDICARE, SELFPAY | PROVIDERS: PCP Family Medicine; Visit Provider Psychiatry & Neurology Psychiatry | DX: F32.4 Major depressive disorder, single episode, in partial remission (principal); F98.8 Other specified behavioral and emotional disorders with onset usually occurring in childhood and adolescence; G47.33 Obstructive sleep apnea (adult) (pediatric) | CPT/HCPCS: 99212 ==

== ENCOUNTER → 2023-09-21 14:08 | Outpatient (AMB) | payer MEDICARE, SELFPAY ==
[2023-09-21 14:17] VITALS: BP 110/60; PULSE 80; TEMP 36.3; O2SAT 97; BMI 36.5
--- NOTE | 2023-09-21 14:17 | MHC.OFFWIV ---
Intake Vital Signs 09/21/23 14:17 Height 5 ft 11 in Weight 262 lb BMI 36.5 BP 110/60 Blood Pressure Location Lt brachial Position Sitting Pulse 80 Pulse Source Pulse Oximeter Temp 97.4 F Temp Source Temporal Artery Scan Pulse Oximetry (%) 97 Oxygen Delivery Method Room Air Intake Visit Reasons: EST/ right foot pain (lobby) Intake Note: pt is here today for rt foot pain started 1 week ago Patient Tobacco Use Status: Never used Tobacco Allergies Opium Allergy (Intermediate, Uncoded 04/12/22 16:18) HALLUCINATION opioid Allergy (Unknown, Uncoded 04/12/22 16:19) Hallucinations Do you need a note to return to daycare/school/sports/work: No HPI HPI Comments History of Present Illness Details 68-year-old male comes in today complaining of right foot pain for the last week or so. States the pain is in the webspace between his great toe and 2nd toe. Denies any erythema swelling or severe pain. The pain is just a moderate ache. 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, part remis Essential (primary) hypertension CHASE (obstructive sleep apnea) Hyperlipemia Social History Alcohol intake: current Alcohol intake frequency: 0-2 drinks per day Patient Tobacco Use Status: Never used Tobacco Review of Systems Const All systems reviewed & are unremarkable except as noted in HPI and below Physical Exam Vital Signs: Last Vital Signs Temp 97.4 F 09/21/23 14:17 Pulse 80 09/21/23 14:17 BP 110/60 09/21/23 14:17 Pulse Ox 97 09/21/23 14:17 Oxygen Delivery Method Room Air 09/21/23 14:17 BMI result Body Mass Index 36.5 Const General: healthy appearing and no acute distress Extrem General: Yes normal to inspection Right lower extremity: normal to inspection, full ROM and foot (Pain to palpation in the webspace between great toe and 2nd toe) Results Reviewed Results Reviewed: X-ray done today was negative for fracture or bony explanation of his pain. This was discussed with the patient Assessment & Plan Assessment & Plan (1) Neuroma: Code(s): D36.10 - Benign neoplasm of peripheral nerves and autonomic nervous system, unspecified Plan: The patient's pain most likely is a neuroma. I explained to him using hard-soled shoes such as hiking shoe will help relieve some of the symptoms. If it does not resolve I advised orthopedic surgery for consideration of a cortisone injection in the neuroma. If the foot becomes hot and red he is to return to urgent care soon as possible Plan See plan Coding Level of Care Code Est Pt Level 3 (71871) Diagnoses Neuroma D36.10
== END ==
PROVIDERS: PCP Family Medicine; Visit Provider Physician Assistant Medical
DX: D36.10 Benign neoplasm of peripheral nerves and autonomic nervous system, unspecified (principal)
CPT/HCPCS: 99213

== ENCOUNTER 2023-09-21 14:27 | Outpatient (REF) | payer MEDICARE, SELFPAY ==
--- NOTE | ~2023-09-21 | XR_ITS ---
EXAMINATION: XR FOOT, RIGHT CLINICAL INFORMATION: Pain COMPARISON: Previous x-ray January 2010 TECHNIQUE: AP, lateral, and oblique views of the right foot. FINDINGS: Bone alignment is normal. No fracture or dislocation. Mild arthritis with small osteophytes at the first MTP and second MTP joints. Joint spaces otherwise normal. Soft tissues are normal. XR/XR foot RT min 3V IMPRESSION: Mild degenerative changes with small osteophytes at the first and second MTP joints.
== END 2023-09-21 14:28 | disposition home or self-care (01) ==
LOC: HO.HMGCX 14:27
PROVIDERS: PCP Family Medicine; Visit Provider Physician Assistant Medical
DX: M79.671 Pain in right foot (principal)
CPT/HCPCS: 73630

== ENCOUNTER 2023-11-10 13:55 | Outpatient (AMB) | payer MEDICARE, SELFPAY ==
--- NOTE | 2023-11-10 14:05 | A.OFFPSYCH_ITS ---
Intake Intake Visit Reasons: depression Allergies Opium Allergy (Intermediate, Uncoded 04/12/22 16:18) HALLUCINATION opioid Allergy (Unknown, Uncoded 04/12/22 16:19) Hallucinations Medication List - Last Reconciled 11/10/23 by Parvez Lucero MD armodafinil 200 mg PO QAM 90 days bupropion HCl XL 150 mg PO QAM finasteride 5 mg PO DAILY gabapentin 300 mg PO BEDTIME levothyroxine 75 mcg PO DAILY losartan 100 mg PO DAILY pramipexole 0.25 mg PO BEDTIME 90 days rivastigmine tartrate 1.5 mg PO BID simvastatin 40 mg PO BEDTIME trazodone 300 mg (3 x 100 mg) PO BEDTIME PRN HPI- Psychiatric Chief Complaint: depression HPI Narrative: Patient seen psychiatric follow-up mood generally stable periods of anxiety much of it related to his relationship with his exwife finds armodafaanil helpful. 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 His ex- has been dating the complex relationship she often asked him to come over to help with dogs he feels somewhat tethered because there is relationship potential promise regarding the house. Patient has moved he is living alone but still remains tethered. His has been scam since their divorce by men online. History of attentional problems distractibility which patient's ex- did not tolerate Past Psychiatric History: hx depression adhd chronic marital problems chronic problems attention organization Mental Status Exam Mental Status Exam Narrative: Mental Status Exam Narrative: Appearance: Casually dressed Behavior: Cooperative appropriate psychomotor: Within normal limits Speech: Normal volume and prosody Thought proccess logical and goal-directed Thought content: Future oriented issues related emeshment with ex feeling overwhelmed at times Corrected over how to handle the situation Mood: Anxious mild dysphoria Affect: Appropriate to mood kearns affect SI:denies HI:denies VH/AH:none Delusions: None Insight/judgment: Patient does feel somewhat trapped with ex ongoing he is seeing a therapist regarding these issues Memory/cog: No gross difficulty during visit Assessment and Plan Assessment & Plan (1) ADD (attention deficit disorder) without hyperactivity: Status: Acute Code(s): F98.8 - Other specified behavioral and emotional disorders with onset usually occurring in childhood and adolescence (2) Major depress, part remis: Status: Acute Code(s): F32.4 - Major depressive disorder, single episode, in partial remission (3) CHASE (obstructive sleep apnea): Status: Acute Code(s): G47.33 - Obstructive sleep apnea (adult) (pediatric) Plan Continue Wellbutrin increase or modafinil 200 mg he has found it helpful functioning along Wellbutrin. Trazodone he has been able to increase it to 200 mg hs we have discussed potential for over medication morning Medications: New armodafinil 200 mg PO QAM 90 tabs 0RF 90 days Changed From pramipexole 0.25 mg PO BEDTIME 30 tabs 1RF To pramipexole 0.25 mg PO BEDTIME 90 tabs 1RF 90 days Counseling and coordination of Care Details-Self Mgmt counseling: Extensive discussion regarding difficult relationship ex difficult strategies to manage and ambivalence Medication management counseling: Effectiveness, Side effects and Dosing range Details-Med Mgmt counseling: Wellbutrin trazodone continues to be effective lower trazodone 200 mg bedtime increase on modafinil 200 mg daily patient to monitor blood pressure monitor for any adverse effects has been helpful excessive daytime sleepiness increase alertness and functioning and motivation improved quality of life Diagnosis and Prognosis Counseling: Adequacy of current interventions Details: I spent [37] minutes reviewing the record, seeing the patient and documenting in the medical record. Counseling provided to the patient/caregiver as outlined below. Addressed patient/caregiver concerns regarding current medication regime including effective adherence. Addressed patient/caregiver concerns regarding diagnosis and prognosis including accuracy of diagnosis, prognosis over time, impact of diagnosis. Addressed patient/caregiver concerns regarding impact of recent stressors. 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 They have close family in the area currently living now with his dad Substance History: none Trauma History: none Coding Level of Care Code Est Pt Level 3 (09123) Therapy 30m w/E&M (11193) Diagnoses ADD (attention deficit disorder) without hyperactivity F98.8 Major depress, part remis F32.4 CHASE (obstructive sleep apnea) G47.33
== END 2023-11-10 13:58 | disposition home or self-care (01) ==
LOC: HO.HOP 13:55
PROVIDERS: PCP Family Medicine; Visit Provider Psychiatry & Neurology Psychiatry
DX: F98.8 Other specified behavioral and emotional disorders with onset usually occurring in childhood and adolescence (principal); F32.4 Major depressive disorder, single episode, in partial remission; G47.33 Obstructive sleep apnea (adult) (pediatric)
CPT/HCPCS: 90833; 99213

== ENCOUNTER → 2023-11-10 13:55 | Outpatient (BNVA) | payer MEDICARE, SELFPAY | PROVIDERS: PCP Family Medicine; Visit Provider Psychiatry & Neurology Psychiatry | DX: F32.4 Major depressive disorder, single episode, in partial remission (principal); F98.8 Other specified behavioral and emotional disorders with onset usually occurring in childhood and adolescence; G47.33 Obstructive sleep apnea (adult) (pediatric) | CPT/HCPCS: 99212 ==

== ENCOUNTER 2024-01-19 16:06 | Outpatient (AMB) | payer MEDICARE, SELFPAY ==
--- NOTE | 2024-01-19 16:34 | A.OFFPSYCH_ITS ---
Intake Intake Visit Reasons: depression Allergies Opium Allergy (Intermediate, Uncoded 04/12/22 16:18) HALLUCINATION opioid Allergy (Unknown, Uncoded 04/12/22 16:19) Hallucinations HPI- Psychiatric Chief Complaint: depression HPI Narrative: Pt seen in f/u has had difficulty with his ex who gave away life saving s to indigoers has not been able to make inroads his inability to set any emotional or indeed financial boundaries with his ex and this has complicated his financial life. He has looked into returning work which would solve his financial issues. He is currently obligated to continue paying mortgage on house he and his used to share. Patient has periods of anxiety he is in psychotherapy in [place] but appears not to be engaging in the major issues that he is having with his both emotionally and financially. His ex- frequently shares her multiple contacts with other been some these appeared to be related to fishing and scanning Past Psychiatric History: hx depression adhd chronic marital problems chronic problems attention organization Mental Status Exam Mental Status Exam Narrative: Mental Status Exam Narrative: Appearance: Casually dressed Behavior: Cooperative appropriate psychomotor: Within normal limits Speech: Normal volume and prosody Thought proccess logical and goal-directed Thought content: Feeling overwhelmed at times issues related emeshment with ex not knowing how to approach her Despite her being scanned out of their mutual life savings Mood: Anxious mild dysphoria Affect: Appropriate to mood kearns affect SI:denies HI:denies VH/AH:none Delusions: None Insight/judgment: Patient does feel somewhat trapped with ex ongoing unable to have a real conversation with her regarding her behavior or set limits regarding behavior involving their mutual finances he is seeing a therapist regarding these issues Memory/cog: No gross difficulty during visit Assessment and Plan Assessment & Plan (1) Major depress, part remis: Status: Acute Code(s): F32.4 - Major depressive disorder, single episode, in partial remission (2) ADD (attention deficit disorder) without hyperactivity: Status: Acute Code(s): F98.8 - Other specified behavioral and emotional disorders with onset usually occurring in childhood and adolescence (3) CHASE (obstructive sleep apnea): Status: Acute Code(s): G47.33 - Obstructive sleep apnea (adult) (pediatric) Plan Strongly urged significant intervention with his possibility of consulting an customer support professional to protect his assets in relationship to his inability to and honest conversation with his ex- urged patient to be clear and honest with his therapist regarding above issues he has had to renegotiate mortgage has been unable to pay bills and there is significant impact on his life hoping to return to work at the job he previously had worked at they probably they had approach in about possibility of returning. Patient has a great deal of difficulty being assertive extensive regression discussion regarding these issues Continue on modafinil appears to be quite helpful combination of Wellbutrin are modafinil pramipexole has been quite helpful for restless leg at bedtime patient has been using trazodone up to 300 mg we have discussed repeatedly possibility of morning fatigue sedation with this dose of trazodone Medications: Refilled armodafinil 200 mg PO QAM 90 days 90 tabs 0RF trazodone 300 mg (3 x 100 mg) PO BEDTIME PRN 270 tabs 1RF for insomnia armodafinil 200 mg PO QAM 90 tabs 0RF 90 days pramipexole 0.25 mg PO BEDTIME 90 days 90 tabs 1RF pramipexole 0.25 mg PO BEDTIME 90 tabs 1RF 90 days Counseling and coordination of Care Details-Self Mgmt counseling: Extensive discussion regarding passivity difficulty with assertiveness managing mood feeling a loss of control financial difficulty discussed multiple strategies Medication management counseling: Effectiveness, Side effects and Dosing range Diagnosis and Prognosis Counseling: Accuracy of diagnosis, Impact of diagnosis on life functions, Problematic behaviors secondary to diagnosis and Adequacy of current interventions Details: I spent [45] minutes reviewing the record, seeing the patient and documenting in the medical record. Counseling provided to the patient/caregiver as outlined below. Addressed patient/caregiver concerns regarding current medication regime including effective adherence. Addressed patient/caregiver concerns regarding diagnosis and prognosis including accuracy of diagnosis, prognosis over time, impact of diagnosis. Addressed patient/caregiver concerns regarding impact of recent stressors. [facility] Medical History (Updated 09/21/23 @ 16:11 by KETTY Keller) ADD (attention deficit disorder) without hyperactivity Major depress, part remis Essential (primary) hypertension CHASE (obstructive sleep apnea) Hyperlipemia Social History Alcohol intake: current Alcohol intake frequency: 0-2 drinks per day Patient Tobacco Use Status: Never used Tobacco Social History: The patient is retired he is they do not have children. They have close family in the area currently living now with his dad Substance History: none Trauma History: none Coding Level of Care Code Est Pt Level 3 (96803) Therapy 30m w/E&M (82188) Diagnoses Major depress, part remis F32.4 ADD (attention deficit disorder) without hyperactivity F98.8 CHASE (obstructive sleep apnea) G47.33
== END 2024-01-19 16:48 | disposition home or self-care (01) ==
LOC: HO.HOP 16:06
PROVIDERS: PCP Family Medicine; Visit Provider Psychiatry & Neurology Psychiatry
DX: F32.4 Major depressive disorder, single episode, in partial remission (principal); F98.8 Other specified behavioral and emotional disorders with onset usually occurring in childhood and adolescence; G47.33 Obstructive sleep apnea (adult) (pediatric)
CPT/HCPCS: 90833; 99213

== ENCOUNTER → 2024-01-19 16:06 | Outpatient (BNVA) | payer MEDICARE, SELFPAY | PROVIDERS: PCP Family Medicine; Visit Provider Psychiatry & Neurology Psychiatry | DX: F32.4 Major depressive disorder, single episode, in partial remission (principal); F98.8 Other specified behavioral and emotional disorders with onset usually occurring in childhood and adolescence | CPT/HCPCS: 99212 ==

== ENCOUNTER 2024-03-19 12:02 | Outpatient (AMB) | payer MEDICARE, SELFPAY ==
--- NOTE | 2024-03-19 12:20 | A.OFFPSYCH_ITS ---
Intake Intake Visit Reasons: depression Allergies Opium Allergy (Intermediate, Uncoded 04/12/22 16:18) HALLUCINATION opioid Allergy (Unknown, Uncoded 04/12/22 16:19) Hallucinations Medication List - Last Reconciled 03/19/24 by Parvez Lucero MD armodafinil 200 mg PO QAM 90 days bupropion HCl XL 150 mg PO QAM finasteride 5 mg PO DAILY gabapentin 300 mg PO BEDTIME levothyroxine 75 mcg PO DAILY losartan 100 mg PO DAILY pramipexole 0.25 mg PO BEDTIME 90 days simvastatin 40 mg PO BEDTIME trazodone 300 mg (3 x 100 mg) PO BEDTIME PRN HPI- Psychiatric Chief Complaint: depression HPI Narrative: Pt seen in f/u mood has been ok feels overwhelmed stressed under severe financial stress had been scammed out of his intermediate was hoping to go back to [employer] but they have a hiring freeze right now . Pt was scammed helping his ex who had been scammed on the internet. Pt is being helped by his brother .pt denies si despite divorce continues to be significantly behold in to his ex- and remains enmeshed on different levels. Patient is in ongoing psychotherapy Past Psychiatric History: hx depression adhd chronic marital problems chronic problems attention organization Mental Status Exam Mental Status Exam Narrative: Mental Status Exam Narrative: Appearance: Casually dressed Behavior: Cooperative appropriate psychomotor: Within normal limits Speech: Normal volume and prosody Thought proccess logical and goal-directed Thought content: Feeling overwhelmed at times issues related emeshment with ex somewhat fearful of future given that rehire at his prior defense for does not seem to be happening as quickly as he had hope who micro your say everything is okay everything school your might be you know that do not has Mood: Anxious mild dysphoria Affect: Appropriate to mood kearns affect SI:denies HI:denies VH/AH:none Delusions: None Insight/judgment: patient having difficulty asking for help strongly encourage him to speak to his brother Memory/cog: No gross difficulty during visit Assessment and Plan Assessment & Plan (1) Major depress, part remis: Status: Acute Code(s): F32.4 - Major depressive disorder, single episode, in partial remission (2) ADD (attention deficit disorder) without hyperactivity: Status: Acute Code(s): F98.8 - Other specified behavioral and emotional disorders with onset usually occurring in childhood and adolescence (3) Essential (primary) hypertension: Status: Acute Code(s): I10 - Essential (primary) hypertension (4) CHASE (obstructive sleep apnea): Status: Acute Code(s): G47.33 - Obstructive sleep apnea (adult) (pediatric) Plan patient knows he needs to return to work unfortunately significant amount of his intermediate was scammed from his ex-. he has a great deal of difficulty emotionally and financially some of this may relate to shame/guilt some related to financial continued intertwining. Suggest again that this be a primary issue he discussed in individual counseling strongly urged patient to consider seeing an assistant city attorney apparently he did not have 1 for the divorce. he denies any active SI he is under stress right now and will be reaching out to his brother who does have a house in the area that is not being occupied armodafinil continues to be helpful continue Wellbutrin continue plan of care monitor for over-sedation in the morning he does have CHASE and also has restless leg monitor response to gabapentin Medications: New gabapentin 600 mg PO BEDTIME Refilled bupropion HCl XL 150 mg PO QAM 90 tabs 1RF armodafinil 200 mg PO QAM 90 tabs 1RF 90 days Counseling and coordination of Care Details: I spent [] minutes reviewing the record, seeing the patient and documenting in the medical record. Counseling provided to the patient/caregiver as outlined below. Addressed patient/caregiver concerns regarding current medication regime including effective adherence. Addressed patient/caregiver concerns regarding diagnosis and prognosis including accuracy of diagnosis, prognosis over time, impact of diagnosis. Addressed patient/caregiver concerns regarding impact of recent stre ssors. [facility] Medical History (Updated 09/21/23 @ 16:11 by KETTY Keller) ADD (attention deficit disorder) without hyperactivity Major depress, part remis Essential (primary) hypertension CHASE (obstructive sleep apnea) Hyperlipemia Social History Alcohol intake: current Alcohol intake frequency: 0-2 drinks per day Patient Tobacco Use Status: Never used Tobacco Social History: The patient is retired he is they do not have children. They have close family in the area currently living now with his dad Substance History: none Trauma History: none Coding Level of Care Code Est Pt Level 3 (89235) Therapy 30m w/E&M (31786) Diagnoses Major depress, part remis F32.4 ADD (attention deficit disorder) without hyperactivity F98.8 Essential (primary) hypertension I10 CHASE (obstructive sleep apnea) G47.33
== END 2024-03-19 12:44 | disposition home or self-care (01) ==
LOC: HO.HOP 12:02
PROVIDERS: PCP Family Medicine; Visit Provider Psychiatry & Neurology Psychiatry
DX: F32.4 Major depressive disorder, single episode, in partial remission (principal); F98.8 Other specified behavioral and emotional disorders with onset usually occurring in childhood and adolescence; I10 Essential (primary) hypertension; G47.33 Obstructive sleep apnea (adult) (pediatric)
CPT/HCPCS: 90833; 99213

== ENCOUNTER → 2024-03-19 12:02 | Outpatient (BNVA) | payer MEDICARE, SELFPAY | PROVIDERS: PCP Family Medicine; Visit Provider Psychiatry & Neurology Psychiatry | DX: F32.4 Major depressive disorder, single episode, in partial remission (principal); F98.8 Other specified behavioral and emotional disorders with onset usually occurring in childhood and adolescence; I10 Essential (primary) hypertension; G47.33 Obstructive sleep apnea (adult) (pediatric) | CPT/HCPCS: 99212 ==

== ENCOUNTER 2024-07-04 14:23 | Outpatient (AMB) | payer MEDICARE, SELFPAY ==
--- OUTSIDE RECORDS SUMMARY | 2024-07-04 14:30 | XMS_ITS ---
Author Organization [facility] Address [address] [place] [address] Care Team Providers Care Dispatcher Maintenance Service Name Role Phone Richard Ambriz MD Primary Care Provider Unava ilMelissa Gomez [phone] REASON FOR VISIT 2nd No Show Encounters Encounter Location Date Provider Diagnosis [facility] [address] [place] [address] 02/02/2023 Melissa Martinez Plan Of Treatment No Information Progress Notes * Jerome SOLOMON EDOB: [birth year] (67 yo M)Acc No.[id number]:02/02/2023 Patient:?Jerome Solomon :1955???Age:67 Y???Sex:Male Address:[address] [place] [address], [address] * true * Date:? Generated for Printi alverto/Donis/eTransmitting on:?07/04/2024 02:30 PM EST
--- OUTSIDE RECORDS SUMMARY | 2024-07-04 14:30 | XMS_ITS ---
Author Organization [facility] Address [address] [place] [address] Care Team Providers Care Roentgenology Teacher Name Role Phone Katina WARE, Richard Primary Care Provider Unava ilMelissa Gomez [phone] Encounters Encounter Location Date Provider Diagnosis [facility] [address] [place] [address] 02/02/2023 Melissa Martinez Plan Of Treatment No Information Progress Notes * Jerome SOLOMON EDOB: [birth year] (69 yo M)Acc No.[id number]:02/02/2023 Progress Note Patient:?Jerome SOLOMON Provider:?Melissa Martinez DPM :1955???Age:67 Y???Sex:Male David e:02/02/2023 Address:[address] [place], [place] [id number] Pcp:Richard Ambriz MD Subjective: * Chief Complaints: * ??? * Medical History:? Objective: * Vitals:? Assessment: Plan: * Treatment: * Images: * The named appointment provid er may or may not be the originator of this progress note, and it is not deemed complete until electronically signed by the appointment provider. Sign off status: Pending * Provider:?Melissa Martinez DPM Date:? Generated for Elbai alverto/Donis/eTransmitting on:?07/04/2024 02:30 PM EST
--- OUTSIDE RECORDS SUMMARY | 2024-07-04 14:31 | XMS_ITS | Continuity of Care Document ---
Author Name [facility] Organization [facility] Care Team Providers Care Master Rigger Name Role Phone [facility] Unavailable Unavailable Problems Combined list of problems from [facility]. It does not include entries that were removed or entered in error. Problem Status Onset Date Problem Type Date of Resolution Comments Source Allergies Active Condition [facility] Depression Active Condition [facility] Diabetes Mellitus Type II or unspecified * (ICD-9-CM 250.00) Active Condition [facility]ension [facility] Hypothyroidism Active Condition [facility] Osteoarthrosis involving the knee [facility] Sleep Apnea Active Condition [facility] Immunizations Combined list of available immunizations from the [facility] facilities. Immunization Series Date Given Administered By Site Reaction Lot Number CVX Code Drug Brush Material Preparer Status Comments Source COVID-19 (BLU), VECTOR-NR, [id number], PF, 0.5 ML 1 2020 [address] JSN; [id number]; 1 [place] [facility] Social History Combined list of available smoking, tobacco, and other social history from [facility] facilities. Social History Type Response Date Comment Sourc e Tobacco smoking status NHIS DATE LAST SMOKED 04/07/2001 [facility] History of tobacco use TOBACCO USE/SMOKING SCREEN 04/07/2001 [facility]
--- OUTSIDE RECORDS SUMMARY | 2024-07-04 14:31 | XMS_ITS | Patient Health Record ---
[facility] Address [address] [place] [address] Care Team Providers Care Assembler Flexible Leads Name Role Phone Richard Ambriz MD Primary Care Provider Melissa Redmond Unavailable [phone] Allergies Allergen (clinical drug ingredient) Drug/Non Drug Allergy documented on EMR Reaction Allergy Type Onset Date Status codeine Codeine Unknown Drug Allergy Active morphine Morphine Unknown Drug Allergy Active Reason For Referral No Information Medications Medication SIG (Take, Route, Frequency, Duration) Notes Start Date End Date Status Rivastigmine Tartrate 1.5 MG 1 capsule with food Orally Twice a day Active Tamsulosin HCl 0.4 MG 1 capsule Orally O nce a day for 30 day(s) Not-Taking Armodafinil 250 MG 1 tablet in the morning Orally Once a day Active Ibuprofen 200 MG 1 tablet with food o r milk as needed Orally Three times a day Active Simvastatin 40 MG 1 tablet in the evening Orally Once a day for 30 day(s) Active Levothyroxine Sodium Active Losartan Potassium 100 MG 1 tablet Orall y Once a day for 30 day(s) Active Finasteride Active traZODone HCl 300 MG 0.5 tablet at bedti me Orally Once a day for 30 day(s) Active Wellbutrin Active Omeprazole 20 MG 1 capsule 30 minutes before morning meal Orally Once a day for 30 day(s) Active Pramipexole Dihydrochloride 0.25 MG 1 tablet Orally Once a day for 30 day(s) Active Immunizations Vaccine Route Administration Date Status Comme nts COVID-19 Robbie & Robbie/Lorraine Unknown 03/31/2021 Administered First Dose: 07/29/2020 Moderna for booster shot Influenza Unknown 02/14/2022 Administered Social History Tobacco Use: Social History Observation Description Date Details (start date - stop date) Former Smoker NA - NA Tobacco Use/Smoking Question Answer Notes Are you a: former smoker Additional Findings: Tobacco Non-User Current no n-smoker Alcohol Screen Question Answer Notes Did you have a drink containing alcohol in the p ast year? No Points 0 Interpretation Negative Tobacco use other than smoking: Question Answer Notes Are you an other tobacco user? No Problems Problem Type SNOMED Code ICD Code Onset Dates Problem Status W/U Status Risk Notes Problem 853516403 Hammer toe of le ft foot (M20.42) Active confirmed Problem [id number] Type 2 diabetes mellitus with polyneuropathy (E11.42) Active confirmed Plan Of Treatment No Information Insurance Providers Payer Name Payer Address Payer Phone Subscriber Number Group Number Insured Name Patient Relationship to Insured Coverage Start Date Coverage End Date Medicare National Govt Svcs Inc [address] [facility] [place] [address] [phone] [id number] Jerome Solomon Self - patient is the insured [employer] [address] [place] [address] [phone] [id number] 5 Jerome Solomon Self - patient is the insured Medical (General) History Medical History History ICD Code Back,Hip,and Knee pain Cholesterol Depression type II diabetes Hiatal hernia High blood pressure Neuropathy thyroid Measles Mumps Bone implants/screws Sleep apnea Surgical History Surgery Date(Month/Year) Hiatal hernia 07/10/15 Left rotator cuff surgery 08/16/16,10/18 Fusion- plastic disk- back 12/07/18 Lap band 2010 Right rotator cuff Surgery 03/28/14 Reverse shoulder surgery 07/2022
--- NOTE | 2024-07-04 14:57 | A.OFFPSYCH_ITS ---
Intake Intake Visit Reasons: depression Allergies Opium Allergy (Intermediate, Uncoded 04/12/22 16:18) HALLUCINATION opioid Allergy (Unknown, Uncoded 04/12/22 16:19) Hallucinations Medication List - Last Reconciled 07/04/24 by Parvez Lucero MD armodafinil 200 mg PO QAM 90 days bupropion HCl XL 150 mg PO QAM finasteride 5 mg PO DAILY gabapentin 600 mg PO BEDTIME levothyroxine 75 mcg PO DAILY losartan 100 mg PO DAILY pramipexole 0.25 mg PO BEDTIME 90 days simvastatin 40 mg PO BEDTIME trazodone 300 mg (3 x 100 mg) PO BEDTIME PRN HPI- Psychiatric Chief Complaint: depression HPI Narrative: Patient seen psychiatric follow-up the patient has had some good news may be accepted back at a job that he had previously done [employer]. Patient's ex- is in [place] appears to have started seeing someone she appears to be seriously ill. Patient's mood generally better he has been borrowing some money for his brother to keep him stable for now. Ex- is supposed to leave him the house in her will that has not yet happened Past Psychiatric History: hx depression adhd chronic marital problems chronic problems attention organization Mental Status Exam Mental Status Exam Narrative: Mental Status Exam Narrative: Appearance: Casually dressed Behavior: Cooperative appropriate psychomotor: Within normal limits Speech: Normal volume and prosody Thought proccess logical and goal-directed Thought content: Patient has been feeling more hopeful Mood: Anxious mild dysphoria Affect: Appropriate to mood kearns affect SI:denies HI:denies VH/AH:none Delusions: None Insight/judgment improved judgment Memory/cog: No gross difficulty during visit Assessment and Plan Assessment & Plan (1) Major depress, part remis: Status: Acute Code(s): F32.4 - Major depressive disorder, single episode, in partial remission (2) ADD (attention deficit disorder) without hyperactivity: Status: Acute Code(s): F98.8 - Other specified behavioral and emotional disorders with onset usually occurring in childhood and adolescence Plan Continue trazodone warned regarding over-sedation in the morning Wellbutrin seem s to be helpful 150 daily armodafinil 200 mg daily Medications: Refilled trazodone 300 mg (3 x 100 mg) PO BEDTIME PRN 270 tabs 1RF for insomnia bupropion HCl XL 150 mg PO QAM 90 tabs 1RF armodafinil 200 mg PO QAM 90 tabs 1RF 90 days pramipexole 0.25 mg PO BEDTIME 90 tabs 1RF 90 days Counseling and coordination of Care Details-Self Mgmt counseling: Issues related to hostile dependence with his ex- significant issues especially with her being sick. Discussed ways to maintain his independence and functioning Medication management counseling: Effectiveness and Side effects Details-Med Mgmt counseling: Medication appears to be helpful mood stable able to concentrate function Diagnosis and Prognosis Counseling: Accuracy of diagnosis, Impact of family relationship and Adequacy of current interventions Details: I spent [38] minutes reviewing the record, seeing the patient and documenting in the medical record. Counseling provided to the patient/caregiver as outlined below. Addressed patient/caregiver concerns regarding current medication regime including effective adherence. Addressed patient/caregiver concerns regarding diagnosis and prognosis including accuracy of diagnosis, prognosis over time, impact of diagnosis. Addressed patient/caregiver concerns regarding impact of recent stressors. [facility] Medical History (Updated 09/21/23 @ 16:11 by KETTY Keller) ADD (attention deficit disorder) without hyperactivity Major depress, part remis Essential (primary) hypertension CHASE (obstructive sleep apnea) Hyperlipemia Social History Alcohol intake: current Alcohol intake frequency: 0-2 drinks per day Patient Tobacco Use Status: Never used Tobacco Social History: The patient is retired he is they do not have children. They have close family in the area currently living now with his dad Substance History: none Trauma History: none Coding Level of Care Code Est Pt Level 3 (24693) Therapy 30m w/E&M (33336) Diagnoses Major depress, part remis F32.4 ADD (attention deficit disorder) without hyperactivity F98.8
== END 2024-07-04 15:09 | disposition home or self-care (01) ==
LOC: HO.HOP 14:23
PROVIDERS: PCP Family Medicine; Visit Provider Psychiatry & Neurology Psychiatry
DX: F32.4 Major depressive disorder, single episode, in partial remission (principal); F98.8 Other specified behavioral and emotional disorders with onset usually occurring in childhood and adolescence
CPT/HCPCS: 90833; 99213

== ENCOUNTER → 2024-07-04 14:23 | Outpatient (BNVA) | payer MEDICARE, SELFPAY | PROVIDERS: PCP Family Medicine; Visit Provider Psychiatry & Neurology Psychiatry | DX: F32.4 Major depressive disorder, single episode, in partial remission (principal); F98.8 Other specified behavioral and emotional disorders with onset usually occurring in childhood and adolescence; Z71.89 Other specified counseling | CPT/HCPCS: 99212 ==

== ENCOUNTER 2024-09-27 14:09 | Outpatient (AMB) | payer MEDICARE, SELFPAY ==
--- OUTSIDE RECORDS SUMMARY | 2024-09-27 14:50 | XMS_ITS | Patient Health Record ---
[facility] Address [address] [place] [address] Care Team Providers Care Chief Recordist Name Role Phone Richard Ambriz MD Primary Care Provider Melissa Redmond Unavailable [phone] Allergies Allergen (clinical drug ingredient) Drug/Non Drug [...] Problem Status W/U Status Risk Notes Problem [id number] Hammer toe of le ft foot (M20.42) Active confirmed Problem 11913979 Type 2 diabetes mellitus with polyneuropathy (E11.42) Active confirmed Plan Of Treatment No Information Insurance Providers Payer Name Payer Address Payer Phone Subscriber Number Group Number Insured Name Patient Relationship to Insured Coverage Start Date Coverage End Date Medicare National Govt Svcs Inc [address] [place] [address] [id number] Jerome Solomon Self - patient is the insured [employer] [address] [place] [address] [phone] [id number] 5 Jerome Solomon Self - patient is [...]
--- OUTSIDE RECORDS SUMMARY | 2024-09-27 14:50 | XMS_ITS | Continuity of Care Document ---
Author Name [facility] Organization [facility] Care Team Providers Care Footwear Machinery Instructor Name Role Phone [facility] Unavailable Unavailable Problems Combined list of problems from [facility]. It does not include entries that were removed or entered in error. Problem Status Onset Date Problem Type Date of Resolution Comments Source Allergies Active Condition [facility] Depression Active Condition [facility] Diabetes Mellitus Type II or unspecified * (ICD-9-CM 250.00) Active Condition [facility] Hypertension [facility] Hypothyroidism Active Condition [facility] Osteoarthrosis involving the knee [facility] Sleep Apnea Active Condition [facility] Immunizations Combined list of available immunizations from the [facility] facilities. Immunization Series Date Given Administered By Site Reaction Lot Number CVX Code Drug Cad Drafter Status Comments Source COVID-19 (BLU), VECTOR-NR, [id number], PF, 0.5 ML 1 2020 [facility] JSN; [id number]; 1 DE [facility] Social History Combined list of available smoking, tobacco, and other social history from [facility] facilities. Social History Type Response Date Comment Sourc e Tobacco smoking status NHIS DATE LAST SMOKED 04/07/2001 [facility] History of tobacco use TOBACCO USE/SMOKING SCREEN 04/07/2001 [facility]
--- NOTE | 2024-09-27 16:53 | MHC.OFFVISPS ---
Intake Intake Visit Reasons: depression Allergies Opium Allergy (Intermediate, Uncoded 04/12/22 16:18) HALLUCINATION opioid Allergy (Unknown, Uncoded 04/12/22 16:19) Hallucinations Medication List - Last Reconciled 09/27/24 by Parvez Lucero MD armodafinil 200 mg PO QAM 90 days bupropion HCl XL 150 mg PO QAM finasteride 5 mg PO DAILY gabapentin 600 mg PO BEDTIME levothyroxine 75 mcg PO DAILY losartan 100 mg PO DAILY pramipexole 0.25 mg PO BEDTIME 90 days simvastatin 40 mg PO BEDTIME trazodone 300 mg (3 x 100 mg) PO BEDTIME PRN HPI- Psychiatric Chief Complaint: depression HPI Narrative: Patient seen psychiatric follow-up. Patient continues to be doing okay he has been borrowing money from his brother he had been hoping to get a job back with his old employer which was in the [employer] figures but that has not worked out to this point. Patient's continues to live in [place] with but does have some form of brain illness according to the patient possibly a brain tumor. Patient continues on Wellbutrin pramipexole Past Psychiatric History: hx depression adhd chronic marital problems chronic problems attention organization Mental Status Exam Mental Status Exam Narrative: Mental Status Exam Narrative: Appearance: Casually dressed Behavior: Cooperative appropriate psychomotor: Within normal limits Speech: Normal volume and prosody Thought proccess logical and goal-directed Thought content: Patient has been feeling more hopeful Mood: Anxious mild dysphoria Affect: Appropriate to mood kearns affect SI:denies HI:denies VH/AH:none Delusions: None Insight/judgment improved judgment Memory/cog: No gross difficulty during visit Assessment and Plan Assessment & Plan (1) Major depress, part remis: Status: Acute Code(s): F32.4 - Major depressive disorder, single episode, in partial remission (2) ADD (attention deficit disorder) without hyperactivity: Status: Acute Code(s): F98.8 - Other specified behavioral and emotional disorders with onset usually occurring in childhood and adolescence Plan Patient's state unclear at the present time doing okay has ongoing tie financially with his ex- and will not be stable until these financially stable. Still looking for work has been borrowing money from his brother. Continue Wellbutrin dopamine agonist at bedtime trazodone discussed potential over-sedation in the morning with to high dose Counseling and coordination of Care Pt. Self Management counseling: Behavior activation Details-Self Mgmt counseling: Discussed issues related to maintaining boundaries maintaining motivation and functioning Medication management counseling: Effectiveness Diagnosis and Prognosis Counseling: Problematic behaviors secondary to diagnosis and Adequacy of current interventions Details: I spent [] minutes reviewing the record, seeing the patient and documenting in the medical record. Counseling provided to the patient/caregiver as outlined below. Addressed patient/caregiver concerns regarding current medication regime including effective adherence. Addressed patient/caregiver concerns regarding diagnosis and prognosis including accuracy of diagnosis, prognosis over time, impact of diagnosis. Addressed patient/caregiver concerns regarding impact of recent stressors. [facility] Medical History (Updated 09/21/23 @ 16:11 by KETTY Keller) ADD (attention deficit disorder) without hyperactivity Major depress, part remis Essential (primary) hypertension CHASE (obstructive sleep apnea) Hyperlipemia Social History Alcohol intake: current Alcohol intake frequency: 0-2 drinks per day Patient Tobacco Use Status: Never used Tobacco Social History: The patient is retired he is they do not have children. They have close family in the area currently living now with his dad Substance History: none Trauma History: none Coding Level of Care Code Est Pt Level 4 (60726) Diagnoses Major depress, part remis F32.4 ADD (attention deficit disorder) without hyperactivity F98.8
== END 2024-09-27 15:26 | disposition home or self-care (01) ==
LOC: HO.HOP 14:09
PROVIDERS: PCP Family Medicine; Visit Provider Psychiatry & Neurology Psychiatry
DX: F32.4 Major depressive disorder, single episode, in partial remission (principal); F98.8 Other specified behavioral and emotional disorders with onset usually occurring in childhood and adolescence
CPT/HCPCS: 99214

== ENCOUNTER → 2024-09-27 14:09 | Outpatient (BNVA) | payer MEDICARE, SELFPAY | PROVIDERS: PCP Family Medicine; Visit Provider Psychiatry & Neurology Psychiatry | DX: F32.4 Major depressive disorder, single episode, in partial remission (principal); F98.8 Other specified behavioral and emotional disorders with onset usually occurring in childhood and adolescence | CPT/HCPCS: 99212 ==

== ENCOUNTER 2024-12-20 14:03 | Outpatient (AMB) | payer MEDICARE, SELFPAY ==
--- OUTSIDE RECORDS SUMMARY | 2020-07-29 09:15 | XMS_ITS | Continuity of Care Document ---
Author Name [facility] Organization [facility] Care Team Providers Care Team Driver Name Role Phone [facility] Unavailable Unavailable Problems Combined list of problems from Department of [facility] and Veterans Affairs facilities. It does not include entries that were removed or entered in error. Problem Status Onset Date Problem Type Date of Resolution Comments Source Allergies Active Condition [facility] Depression Active Condition [facility] Diabetes Mellitus Type II or unspecified * (ICD-9-CM 250.00) Active Condition [facility] Hypertension [facility] Hypothyroidism Active Condition [facility] Osteoarthrosis involving the knee [facility] Sleep Apnea Active Condition [facility] Immunizations Combined list of available immunizations from the Department of Defense and Veterans Affairs facilities. Immunization Series Date Given Administered By Site Reaction Lot Number CVX Code Drug Payer Specialist Status Comments Source COVID-19 ([employer]), VECTOR-NR, [id number], PF, 0.5 ML 1 2020 212 [facility] ed JSN; [id number]; 1 [place] [facility] Social History Combined list of available smoking, tobacco, and other social history from Department of Defense and Veterans Affairs facilities. Social History Type Response Date Comment Sourc e Tobacco smoking status NHIS DATE LAST SMOKED 04/07/2001 [facility] History of tobacco use TOBACCO USE/SMOKING SCREEN 04/07/2001 [facility]
--- NOTE | 2024-12-20 14:58 | A.OFFPSYCH_ITS ---
Intake Intake Visit Reasons: depression Allergies Opium Allergy (Intermediate, Uncoded 04/12/22 16:18) HALLUCINATION opioid Allergy (Unknown, Uncoded 04/12/22 16:19) Hallucinations Medication List - Last Reconciled 12/20/24 by Parvez Lucero MD amlodipine 2.5 mg PO DAILY armodafinil 200 mg PO QAM 90 days bupropion HCl XL 150 mg PO QAM finasteride 5 mg PO DAILY gabapentin 600 mg PO BEDTIME gabapentin 600 mg PO BEDTIME levothyroxine 75 mcg PO DAILY losartan 100 mg PO DAILY metformin ER 500 mg PO DAILY pramipexole 0.25 mg PO BEDTIME 90 days simvastatin 40 mg PO BEDTIME trazodone 300 mg (3 x 100 mg) PO BEDTIME PRN HPI- Psychiatric Chief Complaint: depression HPI Narrative: Patient seen psychiatric follow-up. Patient will be moving back to his old home after agreement with his ex-. She continues to general be somewhat boundary less with him has been dealing with serious medical problems and living with a man in [place]. Patient unfortunately did not get his old job back but has been applying for multiple positions. Moving back to the house where he had lived him with his will be much more economically beneficial he had been paying the mortgage and also paying rent which he had not been able to afford. Patient generally doing okay some periods of apathy he continues to be treated for sleep apnea. We have discussed previously increase his doses of trazodone might be causing daytime fatigue and apathy. PHQ-9 12 rated as mild difficulty PIPO minimally elevated. Patient does continue in his stressful financial situation and things are up in the here regarding his ex-'s health Past Psychiatric History: hx depression adhd chronic marital problems chronic problems attention organization Assessment and Plan Assessment & Plan (1) Major depress, part remis: Status: Acute Code(s): F32.4 - Major depressive disorder, single episode, in partial remission (2) ADD (attention deficit disorder) without hyperactivity: Status: Acute Code(s): F98.8 - Other specified behavioral and emotional disorders with onset usually occurring in childhood and adolescence (3) CHASE (obstructive sleep apnea): Status: Acute Code(s): G47.33 - Obstructive sleep apnea (adult) (pediatric) Plan ARModafinil can be increased to 100 mg continue Wellbutrin 150 mg pramipexole for restless leg at night trazodone urge patient to decrease as possible. Patient finds attention functioning generally better on the combination of Wellbutrin armodafinil Have strongly urged patient to try and maintain and developed boundaries with his ex Medications: Refilled bupropion HCl XL 150 mg PO QAM 90 tabs 1RF pramipexole 0.25 mg PO BEDTIME 90 tabs 1RF 90 days armodafinil 200 mg PO QAM 90 tabs 1RF 90 days trazodone 300 mg (3 x 100 mg) PO BEDTIME PRN 270 tabs 1RF for insomnia Counseling and coordination of Care Details-Self Mgmt counseling: Issues related to financial difficulty issues related with his ex in concerns Medication management counseling: Effectiveness, Side effects and Dosing range Diagnosis and Prognosis Counseling: Impact of diagnosis on life functions, Problematic behaviors secondary to diagnosis and Adequacy of current interventions Details: I spent [39] minutes reviewing the record, seeing the patient and documenting in the medical record. Counseling provided to the patient/caregiver as outlined below. Addressed patient/caregiver concerns regarding current medication regime including effective adherence. Addressed patient/caregiver concerns regarding diagnosis and prognosis including accuracy of diagnosis, prognosis over time, impact of diagnosis. Addressed patient/caregiver concerns regarding impact of recent stressors. [facility] Medical History (Updated 09/21/23 @ 16:11 by KETTY Keller) ADD (attention deficit disorder) without hyperactivity Major depress, part remis Essential (primary) hypertension CHASE (obstructive sleep apnea) Hyperlipemia Social History Alcohol intake: current Alcohol intake frequency: 0-2 drinks per day Patient Tobacco Use Status: Never used Tobacco Social History: The patient is retired he is they do not have children. They have close family in the area currently living now with his dad Substance History: none Trauma History: none Coding Level of Care Code Est Pt Level 3 (99322) Therapy 30m w/E&M (11360) Diagnoses Major depress, part remis F32.4 ADD (attention deficit disorder) without hyperactivity F98.8 CHASE (obstructive sleep apnea) G47.33
== END 2024-12-20 15:05 | disposition home or self-care (01) ==
LOC: HO.HOP 14:03
PROVIDERS: PCP Family Medicine; Visit Provider Psychiatry & Neurology Psychiatry
DX: F32.4 Major depressive disorder, single episode, in partial remission (principal); F98.8 Other specified behavioral and emotional disorders with onset usually occurring in childhood and adolescence; G47.33 Obstructive sleep apnea (adult) (pediatric)
CPT/HCPCS: 90833; 99213

== ENCOUNTER → 2024-12-20 14:03 | Outpatient (BNVA) | payer MEDICARE, SELFPAY | PROVIDERS: PCP Family Medicine; Visit Provider Psychiatry & Neurology Psychiatry | DX: F32.4 Major depressive disorder, single episode, in partial remission (principal); F98.8 Other specified behavioral and emotional disorders with onset usually occurring in childhood and adolescence; G47.33 Obstructive sleep apnea (adult) (pediatric) | CPT/HCPCS: 99212 ==

== ENCOUNTER 2025-03-20 13:53 | Outpatient (AMB) | payer MEDICARE, SELFPAY ==
--- NOTE | 2025-03-20 14:46 | A.OFFPSYCH_ITS ---
Intake Intake Visit Reasons: depression Allergies Opium Allergy (Intermediate, Uncoded 04/12/22 16:18) HALLUCINATION opioid Allergy (Unknown, Uncoded 04/12/22 16:19) Hallucinations Medication List - Last Reconciled 03/20/25 by Parvez Lucero MD amlodipine 2.5 mg PO DAILY armodafinil 200 mg PO QAM bupropion HCl XL 150 mg PO QAM finasteride 5 mg PO DAILY gabapentin 600 mg PO BEDTIME gabapentin 600 mg PO BEDTIME levothyroxine 75 mcg PO DAILY losartan 100 mg PO DAILY metformin ER 500 mg PO DAILY pramipexole 0.25 mg PO BEDTIME 90 days simvastatin 40 mg PO BEDTIME trazodone 300 mg (3 x 100 mg) PO BEDTIME PRN HPI- Psychiatric Chief Complaint: depression HPI Narrative: Patient seen psychiatric follow-up. Patient's mood has been okay some periods of insomnia. His reportedly will be moving back and they will be sharing their original home together. Patient generally has been doing better still has not been able to find work. Some feelings of lethargy in the morning. Feels better living back at the house no longer renting an apartment still owes money to his brother patient continues on are modafinil Wellbutrin gabapentin at bedtime for restless legs. He and his are legally and patient continue have difficulty setting boundaries Past Psychiatric History: hx depression adhd chronic marital problems chronic problems attention organization Mental Status Exam Mental Status Exam Patient Appearance: Well Grooomed Patient Orientation: Person, Place, Time and Situation Level of Consciousness: Awake and Appropriate Patient Behavior: Appropriate Mood Description: Blunted Affect Description: Appropriate and Constricted Patient Cognition Impaired: No Ability to Follow Directions: Good Speech Pattern: Clear Memory Description: Intact Hallucinations: None Delusions: Not Present Thought Process: Intact and Goal Oriented Thought Content: positive for Goal Oriented, positive for Preoccupation, negative for Suicidal Ideation or negative for Homicidal Ideation Depressive Symptoms: Increased Anxiety, Increased Fatigue, Loss of Energy and Difficulty Concentrating Judgement: Fair Assessment and Plan Assessment & Plan (1) Major depress, part remis: Status: Acute Code(s): F32.4 - Major depressive disorder, single episode, in partial remission (2) ADD (attention deficit disorder) without hyperactivity: Status: Acute Code(s): F98.8 - Other specified behavioral and emotional disorders with onset usually occurring in childhood and adolescence (3) CHASE (obstructive sleep apnea): Status: Acute Code(s): G47.33 - Obstructive sleep apnea (adult) (pediatric) Plan Given lethargy on trazodone discussed trial of doxepin urged clear boundaries with his ex- agreement on some form of contract if there to live together continue Wellbutrin are modafinil appears to be helpful for depression and its and lethargy in the context of obstructive sleep apnea check EKG Medications: New doxepin (Silenor) do not take with trazadone 6 mg PO BEDTIME 30 tabs 2RF 30 days Orders: Orders ECG 12 lead EKG 03/20/25 I10 - Essential (primary) hypertension Counseling and coordination of Care Details-Self Mgmt counseling: Issues related to sleep related to relationship with his ex- Details: I spent [] minutes reviewing the record, seeing the patient and documenting in the medical record. Counseling provided to the patient/caregiver as outlined below. Addressed patient/caregiver concerns regarding current medication regime including effective adherence. Addressed patient/caregiver concerns regarding diagnosis and prognosis including accuracy of diagnosis, prognosis over time, impact of diagnosis. Addressed patient/caregiver concerns regarding impact of recent stressors. [facility] Medical History (Updated 09/21/23 @ 16:11 by KETTY Keller) ADD (attention deficit disorder) without hyperactivity Major depress, part remis Essential (primary) hypertension CHASE (obstructive sleep apnea) Hyperlipemia Social History Alcohol intake: current Alcohol intake frequency: 0-2 drinks per day Patient Tobacco Use Status: Never used Tobacco Social History: The patient is retired he is they do not have children. They have close family in the area currently living now with his dad Substance History: none Trauma History: none Coding Level of Care Code Est Pt Level 4 (71827) Diagnoses Major depress, part remis F32.4 ADD (attention deficit disorder) without hyperactivity F98.8 CHASE (obstructive sleep apnea) G47.33
--- OUTSIDE RECORDS SUMMARY | 2025-03-20 17:04 | XMS_ITS | Patient Health Record ---
Author Organization [facility] Address [address] [place] [address] Care Team Providers Care Houseperson Name Role Phone Richard Ambriz MD Primary Care Provider Melissa Redmond Unavailable [phone] Allergies Allergen (clinical drug ingredient) Drug/Non Drug Allergy documented on EMR Reaction Allergy Type Onset Date Status codeine Codeine Unknown Drug Allergy Active morphine Morphine Unknown Drug Allergy Active Results Component Value Reference Range Notes HEMOGLOBIN A1C (GLYCOHEMOGLO BIN) Reviewed date:12/11/2024 09:40:26 AM Interpretation: Performing Lab: Notes/Report: HEMOGLOBIN A1C % (HH) 6.7 HEMOGLOBIN A1C (GLYCOHEMOGLO BIN) Reviewed date:02/26/2025 01:45:47 PM Interpretation: Performing Lab: Notes/Report: HEMOGLOBIN A1C % (HH) 6.7 Reason For Referral No Information Medications Medication SIG (Take, Route, Frequency, Duration) Notes Start Date End Date Status Simvastatin 40 MG 1 tablet in the evening Orally Once a day; Duration: 30 day(s) Active Tylenol Active Levothyroxine Sodium Active L-Methylfolate 15 MG 1 tablet Orally Onc e a day Active Losartan Potassium 100 MG 1 tablet Orall y Once a day; Duration: 30 day(s) Active metFORMIN HCl Active Gabapentin 600 MG Oral; Duration: 90 Days Active Armodafinil 250 MG 1 tablet in the morning Orally Once a day Active amLODIPine Besylate 2.5 MG Oral; Duratio n: 90 Days Active Pramipexole Dihydrochloride 0.25 MG 1 tablet Orally Once a day; Duration: 30 day(s) Active Rivastigmine Tartrate 1.5 MG 1 capsule with food Orally Twice a day Not-Taking Finasteride Active Tamsulosin HCl 0.4 MG 1 capsule Orally O nce a day; Duration: 30 day(s) Not-Taking traZODone HCl 300 MG 0.5 tablet at bedti me Orally Once a day; Duration: 30 day(s) Active Wellbutrin Active Omeprazole 20 MG 1 capsule 30 minutes before morning meal Orally Once a day; Duration: 30 day(s) Active Ibuprofen 200 MG 1 tablet with food o r milk as needed Orally Three times a day Active Claritin Active Immunizations Vaccine Route Administration Date Status Comme nts Influenza Unknown 02/14/2022 Administered Influenza Unknown 01/15/2024 Administered Influenza Unknown 01/14/2025 Administered COVID-19 Robbie & Robbie/Lorraine Unknown 03/31/2021 Administered First Dose: 07/29/2020 Moderna for booster shot Social History Tobacco Use: Social History Observation Description Date Details (start date - stop date) Never Smoker NA - NA Tobacco use other than smoking: Question Answer Notes Are you an other tobacco user? No Tobacco Control (Standard) Question Answer Notes Tobacco use: Nonsmoker Additional Findings: Tobacco non-user Current no nsmoker AUDIT-C (Standard) Question Answer Notes Did you have a drink containing alcohol in the p ast year? No Points 0 Interpretation Negative Problems Problem Type SNOMED Code ICD Code Onset Dates Problem Status W/U Status Risk Notes Problem Acquired hammer toe of left foot ([id number] ) Hammer toe of left foot (M20.42) Active confirmed Problem Polyneuropathy due to type 2 diabetes mellitus (185511828) Type 2 diabetes mellitus with polyneuropathy (E11.42) Active confirmed Vital Signs Blood pressure diastolic 85 mm Hg 02/26/2025 Height 5ft 11in in 02/26/2025 Blood pressure systolic 130 mm Hg 02/26/2025 Weight 255 lbs 02/26/2025 BMI 35.56 kg/m2 02/26/2025 Encounters [facility]counter [facility] [address] [facility]/11/[facility]24 Melissa Martinez Type 2 diabetes mellitus with polyneuropathy E11.[facility] [address] 02/26/2025 Melissa Martinez Type 2 diabetes mellitus with polyneuropathy E11.42 Assessments Encounter Date Diagnosis (ICD Code) Assessment Notes Treatment Notes Treatment Clinical Notes Section Notes 12/11/2024 Type 2 diabetes mellitus with polyneuropathy (ICD-10 - E11.42) 02/26/2025 Type 2 diabetes mellitus with polyneuropathy (ICD-10 - E11.42) Plan Of Treatment Next Appt Details Provider Name:Melissa moralez, 05/28/2025 01:30:00 PM, [address] [place], [address], Insurance Providers Payer Name Payer Address Payer Phone Subscriber Number Group Number Insured Name Patient Relationship to Insured Coverage Start Date Coverage End Date Medicare [employer] [facility] [address] [place] [address] [id number] Jerome Solomon Self - patient is the insured [employer] [address] [place] [address] [id number] Jerome Solomon Self - patient is [...]
== END 2025-03-20 15:38 | disposition home or self-care (01) ==
LOC: HO.HOP 13:53
PROVIDERS: PCP Family Medicine; Visit Provider Psychiatry & Neurology Psychiatry
DX: F32.4 Major depressive disorder, single episode, in partial remission (principal); F98.8 Other specified behavioral and emotional disorders with onset usually occurring in childhood and adolescence; G47.33 Obstructive sleep apnea (adult) (pediatric)
CPT/HCPCS: 99214

== ENCOUNTER → 2025-03-20 13:53 | Outpatient (BNVA) | payer MEDICARE, SELFPAY | PROVIDERS: PCP Family Medicine; Visit Provider Psychiatry & Neurology Psychiatry | DX: F32.4 Major depressive disorder, single episode, in partial remission (principal); F98.8 Other specified behavioral and emotional disorders with onset usually occurring in childhood and adolescence; G47.33 Obstructive sleep apnea (adult) (pediatric) | CPT/HCPCS: 99212 ==

== ENCOUNTER 2025-05-15 14:09 | Outpatient (AMB) | payer MEDICARE, SELFPAY ==
--- NOTE | 2025-05-15 14:29 | A.OFFPSYCH_ITS ---
Intake Intake Visit Reasons: Depression Allergies Opium Allergy (Intermediate, Uncoded 04/12/22 16:18) HALLUCINATION opioid Allergy (Unknown, Uncoded 04/12/22 16:19) Hallucinations HPI- Psychiatric Chief Complaint: Depression HPI Narrative: Patient seen psychiatric follow-up. Patient's is moving back in they do have an arrangement they are but they have an agreement to share the space and what duty can be divided. Patient's ex dealing with a type of brain cancer. Mood Has generally improved feels more stable continues on Wellbutrin are modafinil trazodone at bedtime. PHQ-9 unremarkable patient has not yet found work Past Psychiatric History: hx depression adhd chronic marital problems chronic problems attention organization Mental Status Exam Mental Status Exam Patient Appearance: Well Grooomed Patient Orientation: Person, Place, Time and Situation Level of Consciousness: Awake and Appropriate Patient Behavior: Appropriate Mood Description: Calm and Appropriate Affect Description: Appropriate and Constricted Patient Cognition Impaired: No Ability to Follow Directions: Good Speech Pattern: Clear Memory Description: Intact Hallucinations: None Delusions: Not Present Thought Process: Intact and Goal Oriented Thought Content: positive for Goal Oriented, positive for Preoccupation, negative for Suicidal Ideation or negative for Homicidal Ideation Depressive Symptoms: Increased Anxiety, Increased Fatigue, Loss of Energy and Difficulty Concentrating Judgement: Fair Assessment and Plan Assessment & Plan (1) ADD (attention deficit disorder) without hyperactivity: Status: Acute Code(s): F98.8 - Other specified behavioral and emotional disorders with onset usually occurring in childhood and adolescence (2) Major depress, part remis: Status: Acute Code(s): F32.4 - Major depressive disorder, single episode, in partial remission Plan Continue present plan of care patient stable doxepin discontinued patient feels trazodone most helpful at bedtime continue Wellbutrin mood stable Medications: Changed From armodafinil 200 mg PO QAM 90 days 90 tabs 1RF To armodafinil 200 mg PO QAM 30 tabs 2RF 30 days Refilled trazodone 300 mg (3 x 100 mg) PO BEDTIME PRN 270 tabs 1RF for insomnia Discontinued doxepin do not take with trazadone Discontinued Reason: Doctor's Order 6 mg PO BEDTIME 30 days 30 tabs 2RF armodafinil Discontinued Reason: Duplicate 200 mg PO QAM 90 tabs 0RF Counseling and coordination of Care Medication management counseling: Effectiveness, Side effects and Dosing range Diagnosis and Prognosis Counseling: Adequacy of current interventions Details: I spent [30] minutes reviewing the record, seeing the patient and documenting in the medical record. Counseling provided to the patient/caregiver as outlined below. Addressed patient/caregiver concerns regarding current medication regime including effective adherence. Addressed patient/caregiver concerns regarding diagnosis and prognosis including accuracy of diagnosis, prognosis over time, impact of diagnosis. Addressed patient/caregiver concerns regarding impact of recent stressors. [facility] Medical History (Updated 09/21/23 @ 16:11 by KETTY Keller) ADD (attention deficit disorder) without hyperactivity Major depress, part remis Essential (primary) hypertension CHASE (obstructive sleep apnea) Hyperlipemia Social History Alcohol intake: current Alcohol intake frequency: 0-2 drinks per day Patient Tobacco Use Status: Never used Tobacco Social History: The patient is retired he is they do not have children. They have close family in the area currently living now with his dad Substance History: none Trauma History: none Coding Level of Care Code Est Pt Level 4 (84382) Diagnoses ADD (attention deficit disorder) without hyperactivity F98.8 Major depress, part remis F32.4
--- OUTSIDE RECORDS SUMMARY | 2025-05-15 15:22 | XMS_ITS | Patient Health Record ---
Author Organization [facility] Address [address] [place] [address] Care Team Providers Care Plasma Processor Name Role Phone Richard Ambriz MD Primary Care Provider Melissa Redmond Unavailable [phone] Allergies Allergen (clinical drug ingredient) Drug/Non Drug [...] Problem Acquired hammer toe of left foot (3999358741722123 ) Hammer toe of left foot (M20.42) Active confirmed Problem Polyneuropathy due to type 2 diabetes mellitus (330252067) Type 2 diabetes mellitus with polyneuropathy (E11.42) Active confirmed Vital Signs Blood pressure diastolic 85 mm Hg 02/26/2025 Height 5ft 11in in 02/26/2025 Blood pressure systolic 130 mm Hg 02/26/2025 Weight 255 lbs 02/26/2025 BMI 35.56 kg/m2 02/26/2025 Encounters [facility] [address] [facility]/11/[facility]24 Melissa Martinez Type 2 diabetes mellitus with [facility]neuropathy E11.42 [facility] [address] 02/26/2025 Melissa Martinez Type 2 diabetes mellitus with polyneuropathy E11.42 Assessments Encounter Date Diagnosis (ICD Code) Assessment Notes Treatment Notes Treatment Clinical Notes Section Notes 12/11/2024 Type 2 diabetes mellitus with polyneuropathy (ICD-10 - E11.42) 02/26/2025 Type 2 diabetes mellitus with polyneuropathy (ICD-10 - E11.42) Plan Of Treatment Next Appt Details Provider Name:Melissa moralez, 05/28/2025 01:30:00 PM, [address] [place], [address], Insurance Providers Payer Name Payer Address Payer Phone Subscriber Number Group Number Insured Name Patient Relationship to Insured Coverage Start Date Coverage End Date Medicare National Govt [facility] [address] [place] [address] [id number] Jerome Solomon Self - patient is the insured [employer] [address] [place] [address] [phone] [id number] Jerome Solomon Self - patient is [...]
== END 2025-05-15 15:05 | disposition home or self-care (01) ==
LOC: HO.HOP 14:09
PROVIDERS: PCP Family Medicine; Visit Provider Psychiatry & Neurology Psychiatry
DX: F98.8 Other specified behavioral and emotional disorders with onset usually occurring in childhood and adolescence (principal); F32.4 Major depressive disorder, single episode, in partial remission
CPT/HCPCS: 99214

== ENCOUNTER → 2025-05-15 14:09 | Outpatient (BNVA) | payer MEDICARE, SELFPAY | PROVIDERS: PCP Family Medicine; Visit Provider Psychiatry & Neurology Psychiatry | DX: F98.8 Other specified behavioral and emotional disorders with onset usually occurring in childhood and adolescence (principal); F32.4 Major depressive disorder, single episode, in partial remission | CPT/HCPCS: 99212 ==